=== PATIENT | male | born 1945 | race Caucasian/White ===

== ENCOUNTER 2018-05-03 09:58 | Inpatient (IN) ==
[2018-05-03] MEDS ORDERED: methylPREDNISolone SOD SUC 125 MG/2 ML VIAL IV STA (10:32)
[2018-05-03] MEDS ORDERED: FUROSEMIDE 100 MG/10 ML VIAL IV STA (10:32)
[2018-05-03 10:58] LABS: ABG Base Excess 4.2 MMOL/L (-2.5-2.5); ABG HCO3 28.1 MMOL/L (20-26); ABG Oxygen Saturation 91.8 % (95-100); ABG PCO2 42.2 MM HG (35-48); ABG PO2 58.2 MM HG (80-95); ABG TCO2 26.5 MMOL/L (23-27); Allen Test Positive
[2018-05-03] MEDS ORDERED: ALBUTEROL 2.5 MG/3 ML NEB RESP TX SCH (11:00)
[2018-05-03 11:07] LABS: Basophils % 0.3 % (0.0-0.8); Eosinophils % 0.2 % (0.00-10.9); Hematocrit 29.4 VOL% (42.0-52.0); Immature Granulocytes % 1.7 %; Lymphocytes # 1.7 10*3/uL (1.4-4.0); Lymphocytes % 14.2 % (21.2-54.2); Mean Corpuscular HGB Conc 32.3 GM/DL (32-36); Mean Corpuscular Hemoglobin 26 PG (27-34); Mean Platelet Volume 9.5 FL (9.6-12.0); Monocytes # 1.7 10*3/uL (0.11-0.8); Monocytes % 14.9 % (1.7-12.7); NRBC # 0.03 10*3/uL; Neutrophils % 68.7 % (38.7-73.9); Red Blood Count 3.63 MC/CUMM (3.8-5.5); Red Cell Distribution Width 16.4 % (9.3-17.3); White Blood Count 11.7 T/CUMM (4-12)
[2018-05-03 11:08] LABS: Hemoglobin 9.5 GM/DL (14.0-18.0); Platelet Count 114 T/CUMM (130-400)
[2018-05-03 11:36] LABS: Acetaminophen < 2.0 UG/ML (10-30); Salicylate < 2.8 MG/DL (2.8-20)
[2018-05-03 11:39] LABS: Albumin 2.9 G/DL (3.4-5.0); Bilirubin,Total 0.4 MG/DL (0.2-1.0); Calcium 7.5 MG/DL (8.5-10.1); Osmolality,Calculated 280.4 MOS/KG (273-304); Potassium 3.5 MMOL/L (3.5-5.1); Total Protein 6.4 G/DL (6.4-8.3)
[2018-05-03 11:59] LABS: Apearance,Urine CLEAR (Clear); Bilirubin,Urine Negative (Negative); Blood, Urine Negative (Negative); Glucose,Urine (UA) Negative (Negative); Ketones,Urine 5 mg/dL (Negative); Mucus,Urine Occasional /LPF (Occasional); Nitrite,Urine Negative (Negative); Protein,Urine Negative; RBC,Urine <1 /HPF (0-4); Urine Color Yellow (Yellow); Urine Specific Gravity 1.006 (1.001-1.035); Urine Urobilinogen < 2.0 EU/DL (0.2-1.0); WBC,Urine <1 /HPF (0-6)
[2018-05-03 12:09] LABS: Barbiturates Screen,Urine Negative (Negative); Benzodiazepines Screen,Urine Negative (Negative); Cannabinoid Screen,Urine Negative (Negative); Opiate Screen,Urine Negative (Negative); Phencyclidine Screen,Urine Negative (Negative)
[2018-05-03] MEDS ORDERED: DEXTROSE 50% 25 GM/50 ML VIAL IV PRN (15:34)
[2018-05-03] MEDS ORDERED: LACTULOSE 20 GM/30 ML UDCUP PO PRN (15:34)
[2018-05-03] MEDS ORDERED: ONDANSETRON 4 MG/2 ML VIAL IV PRN (15:34)
[2018-05-03] MEDS ORDERED: ACETAMINOPHEN 325 MG TABLET PO PRN (15:34)
[2018-05-03] MEDS ORDERED: MORPHINE 4 MG/1 ML VIAL IV PRN (15:34)
[2018-05-03] MEDS ORDERED: methylPREDNISolone SOD SUC 40 MG/1 ML VIAL IV SCH (15:34)
[2018-05-03] MEDS ORDERED: LORazepam 2 MG/1 ML VIAL IV PRN (15:34)
[2018-05-03] MEDS ORDERED: SODIUM CHLORIDE 0.9% 1,000 ML IV SCH (15:34)
[2018-05-03] MEDS ORDERED: GLUCAGON 1 MG VIAL IM PRN (15:34)
[2018-05-03] MEDS ORDERED: ALBUTEROL/IPRATROPIUM 3 ML NEB RESP TX PRN (15:34)
[2018-05-03] MEDS ORDERED: FUROSEMIDE 20 MG/2 ML VIAL IV SCH (16:00)
[2018-05-03] MEDS: ENOXAPARIN 40 MG/0.4 ML SYRINGE SUBCUT SCH (17:05)
[2018-05-03] MEDS: INSULIN REGULAR 100 UNIT/ML SUBCUT SCH ×2 (17:26→20:32)
[2018-05-03] MEDS: cefTRIAXone 1,000 MG in SYRINGE 1 EACH IV SCH (18:25)
[2018-05-03] MEDS: methylPREDNISolone SOD SUC 40 MG/1 ML VIAL IV SCH (18:25)
[2018-05-03] MEDS: DOCUSATE SODIUM 100 MG CAPSULE PO SCH (20:32)
[2018-05-03] MEDS ORDERED: BIOFLAVONOID PO SCH (21:00)
[2018-05-03] MEDS ORDERED: BERBERINE PO SCH (21:00)
[2018-05-03] MEDS ORDERED: ASCORBATE CALCIUM PO SCH (21:00)
[2018-05-03] MEDS ORDERED: cloNIDine 0.1 MG TABLET PO PRN (21:22)
[2018-05-03] MEDS: METOPROLOL TARTRATE 25 MG TABLET PO SCH (21:30)
[2018-05-04] MEDS: methylPREDNISolone SOD SUC 40 MG/1 ML VIAL IV SCH ×3 (03:13→18:33)
[2018-05-04 04:57] LABS: Basophils % 0.1 % (0.0-0.8); Hematocrit 29.2 VOL% (42.0-52.0); Hemoglobin 9.5 GM/DL (14.0-18.0); Immature Granulocytes % 1.4 %; Immature Granulocytes Absolute 0.15 #; Lymphocytes # 0.5 10*3/uL (1.4-4.0); Lymphocytes % 4.6 % (21.2-54.2); Mean Corpuscular HGB Conc 32.5 GM/DL (32-36); Mean Corpuscular Hemoglobin 26 PG (27-34); Monocytes # 0.9 10*3/uL (0.11-0.8); Monocytes % 8.2 % (1.7-12.7); NRBC # 0.03 10*3/uL; Neutrophils # 9.1 10*3/uL (1.4-7.4); Neutrophils % 85.7 % (38.7-73.9); Platelet Count 104 T/CUMM (130-400); Red Blood Count 3.65 MC/CUMM (3.8-5.5); Red Cell Distribution Width 16.4 % (9.3-17.3); White Blood Count 10.7 T/CUMM (4-12)
[2018-05-04 05:21] LABS: Band Neutrophils 2 % (0-10); Hypochromasia 1+; Lymphocytes 7 % (20-55); Platelet Estimate Decreased; Segmented Neutrophils 87 % (50-85); Total Cells Counted 100
[2018-05-04 05:24] LABS: Calcium 8.2 MG/DL (8.5-10.1); Osmolality,Calculated 276.8 MOS/KG (273-304); Potassium 3.9 MMOL/L (3.5-5.1)
[2018-05-04 05:29] LABS: Bilirubin,Total 0.7 MG/DL (0.2-1.0); Calcium 7.9 MG/DL (8.5-10.1); Osmolality,Calculated 278.7 MOS/KG (273-304); Potassium 3.9 MMOL/L (3.5-5.1); Risk Ratio 1.34; Total Protein 6.5 G/DL (6.4-8.3); VLDL CHOLESTEROL 11.8 MG/DL
[2018-05-04 05:35] LABS: Folate 13.5 NG/ML (5.4-24.0)
[2018-05-04] MEDS ORDERED: hydrALAZINE 20 MG/1 ML VIAL IV PRN (06:46)
[2018-05-04] MEDS: FUROSEMIDE 20 MG/2 ML VIAL IV SCH ×2 (07:21→16:51)
[2018-05-04] MEDS: INSULIN REGULAR 100 UNIT/ML SUBCUT SCH ×4 (08:33→20:16)
[2018-05-04] MEDS: MULTIVITAMIN (BEROCCA) TABLET PO SCH (08:33)
[2018-05-04] MEDS: SERTRALINE 50 MG TABLET PO SCH (08:34)
[2018-05-04] MEDS: PANTOPRAZOLE 40 MG VIAL IV SCH (08:34)
[2018-05-04] MEDS: METOPROLOL TARTRATE 25 MG TABLET PO SCH ×2 (08:34→20:16)
[2018-05-04] MEDS: DOCUSATE SODIUM 100 MG CAPSULE PO SCH ×2 (08:34→20:17)
[2018-05-04] MEDS: LOSARTAN 50 MG TABLET PO SCH (08:34)
[2018-05-04] MEDS ORDERED: AST PO SCH (09:00)
[2018-05-04] MEDS ORDERED: MILK THISTLE SEED EXTRACT 200 MG PO SCH (09:00)
[2018-05-04] MEDS ORDERED: KRILL PO SCH (09:00)
[2018-05-04] MEDS ORDERED: EPA PO SCH (09:00)
[2018-05-04] MEDS ORDERED: [UNRECOGNIZED DRUG - OTHER] PO SCH (09:00)
[2018-05-04] MEDS ORDERED: [UNRECOGNIZED DRUG - OTHER] PO SCH (09:00)
[2018-05-04] MEDS ORDERED: CHOLECALCIFEROL PO SCH (09:00)
[2018-05-04] MEDS ORDERED: VIT K2 PO SCH (09:00)
[2018-05-04] MEDS ORDERED: DHA PO SCH (09:00)
[2018-05-04] MEDS ORDERED: LOSARTAN 50 MG TABLET PO SCH (09:00)
[2018-05-04] MEDS ORDERED: PHOSPHO PO SCH (09:00)
[2018-05-04] MEDS: ENOXAPARIN 40 MG/0.4 ML SYRINGE SUBCUT SCH (15:50)
[2018-05-04] MEDS: cefTRIAXone 1,000 MG in SYRINGE 1 EACH IV SCH (17:07)
[2018-05-05] MEDS: methylPREDNISolone SOD SUC 40 MG/1 ML VIAL IV SCH ×2 (02:46→12:09)
[2018-05-05 06:18] VITALS: BP 163/83
[2018-05-05] MEDS: DOCUSATE SODIUM 100 MG CAPSULE PO SCH (08:35)
[2018-05-05] MEDS: SERTRALINE 50 MG TABLET PO SCH (08:35)
[2018-05-05] MEDS: MULTIVITAMIN (BEROCCA) TABLET PO SCH (08:35)
[2018-05-05] MEDS: FUROSEMIDE 20 MG/2 ML VIAL IV SCH (08:36)
[2018-05-05] MEDS: INSULIN REGULAR 100 UNIT/ML SUBCUT SCH ×2 (08:36→12:09)
[2018-05-05] MEDS: LOSARTAN 50 MG TABLET PO SCH (08:36)
[2018-05-05] MEDS: PANTOPRAZOLE 40 MG VIAL IV SCH (08:37)
[2018-05-05] MEDS: METOPROLOL TARTRATE 25 MG TABLET PO SCH (08:37)
[2018-05-05] MEDS ORDERED: ZINC OXIDE PASTE 113 GM TUBE TOP SCH (13:30)
== END 2018-05-05 12:45 | disposition home or self-care (01) | DRG 880 ==
LOC: EDUNIT# → EDBD → N.ED 09:58 → N.EDINP 14:03 → N.ICU 15:03
PROVIDERS: ADMIT Family Medicine; ATTEND Family Medicine

== ENCOUNTER 2018-07-02 12:01 | Inpatient (IN) ==
[2018-07-02] MEDS ORDERED: ALBUTEROL/IPRATROPIUM 3 ML NEB RESP TX STA (12:41)
[2018-07-02] MEDS ORDERED: methylPREDNISolone SOD SUC 125 MG/2 ML VIAL IV STA (12:41)
[2018-07-02 13:12] LABS: Basophils # 0.1 10*3/uL (0.0-0.2); Basophils % 0.6 % (0.0-0.8); Eosinophils % 0.1 % (0.00-10.9); Hematocrit 30.3 VOL% (42.0-52.0); Hemoglobin 8.4 GM/DL (14.0-18.0); Immature Granulocytes % 1.4 %; Immature Granulocytes Absolute 0.11 #; Lymphocytes # 1.3 10*3/uL (1.4-4.0); Lymphocytes % 16.3 % (21.2-54.2); Mean Corpuscular HGB Conc 27.7 GM/DL (32-36); Mean Corpuscular Hemoglobin 20 PG (27-34); Mean Corpuscular Volume 72.7 FL (87-102); Mean Platelet Volume 9.3 FL (9.6-12.0); Monocytes # 1.3 10*3/uL (0.11-0.8); Monocytes % 16.6 % (1.7-12.7); Neutrophils # 5.1 10*3/uL (1.4-7.4); Platelet Count 139 T/CUMM (130-400); Red Blood Count 4.17 MC/CUMM (3.8-5.5); Red Cell Distribution Width 20.6 % (9.3-17.3); White Blood Count 7.8 T/CUMM (4-12)
[2018-07-02 13:44] LABS: Albumin 2.8 G/DL (3.4-5.0); Bilirubin,Total 0.5 MG/DL (0.2-1.0); Osmolality,Calculated 274.7 MOS/KG (273-304); Total Protein 6.2 G/DL (6.4-8.3)
[2018-07-02] MEDS ORDERED: LEVOFLOXACIN INJ 500 MG in PREMIX 1 EACH IV STA (14:17)
[2018-07-02 15:01] LABS: Band Neutrophils 1 % (0-10); Lymphocytes 17 % (20-55); Segmented Neutrophils 78 % (50-85); Total Cells Counted 100
[2018-07-02 15:02] LABS: Anisocytosis 1+; Microcytosis 1+
[2018-07-02 15:04] LABS: Hypochromasia 1+; Ovalocytes Few; Stomatocytes Slight; Target Cells Slight
[2018-07-02 15:11] LABS: Platelet Estimate Adequate
[2018-07-02 15:14] LABS: Polychromasia Slight
[2018-07-02] MEDS: ALBUTEROL/IPRATROPIUM 3 ML NEB RESP TX SCH ×3 (16:47→23:13)
[2018-07-03] MEDS: ALBUTEROL/IPRATROPIUM 3 ML NEB RESP TX SCH ×6 (02:58→23:17)
[2018-07-03 05:45] LABS: Calcium 8.5 MG/DL (8.5-10.1); Osmolality,Calculated 271.2 MOS/KG (273-304); Potassium 3.8 MMOL/L (3.5-5.1)
[2018-07-03] MEDS ORDERED: DEXTROSE 50% 25 GM/50 ML VIAL IV PRN (07:45)
[2018-07-03] MEDS ORDERED: GLUCAGON 1 MG VIAL IM PRN (07:45)
[2018-07-03] MEDS: hydroCHLOROthiazide 12.5 MG CAPSULE PO SCH (08:19)
[2018-07-03] MEDS: BICALUTAMIDE 50 MG TABLET PO SCH (08:19)
[2018-07-03] MEDS: LEVOFLOXACIN INJ 500 MG in PREMIX 1 EACH IV SCH (08:20)
[2018-07-03] MEDS ORDERED: methylPREDNISolone SOD SUC 40 MG/1 ML VIAL IV SCH (09:00)
[2018-07-03] MEDS: LOSARTAN 50 MG TABLET PO SCH (09:21)
[2018-07-03 09:48] LABS: Basophils % 0.1 % (0.0-0.8); Hematocrit 31.1 VOL% (42.0-52.0); Hemoglobin 8.8 GM/DL (14.0-18.0); Immature Granulocytes % 0.5 %; Immature Granulocytes Absolute 0.04 #; Lymphocytes # 0.7 10*3/uL (1.4-4.0); Lymphocytes % 8.9 % (21.2-54.2); Mean Corpuscular HGB Conc 28.3 GM/DL (32-36); Mean Corpuscular Hemoglobin 20 PG (27-34); Mean Corpuscular Volume 69.4 FL (87-102); Mean Platelet Volume 9.8 FL (9.6-12.0); Monocytes # 1.7 10*3/uL (0.11-0.8); NRBC # 0.05 10*3/uL; Neutrophils # 5.2 10*3/uL (1.4-7.4); Neutrophils % 68.5 % (38.7-73.9); Platelet Count 160 T/CUMM (130-400); Red Blood Count 4.48 MC/CUMM (3.8-5.5); Red Cell Distribution Width 21.1 % (9.3-17.3); White Blood Count 7.6 T/CUMM (4-12)
[2018-07-03 09:52] LABS: Band Neutrophils 5 % (0-10); Lymphocytes 14 % (20-55); Platelet Estimate Normal; Segmented Neutrophils 65 % (50-85); Total Cells Counted 100
[2018-07-03 09:53] LABS: Anisocytosis 1+; Hypochromasia Slight; Polychromasia Slight
[2018-07-03] MEDS: FLUTICASONE/SALMETEROL 250-50 DISKUS 14 DOSE INH SCH ×2 (10:34→21:07)
[2018-07-03] MEDS ORDERED: hydrALAZINE 20 MG/1 ML VIAL IV PRN (10:55)
[2018-07-03] MEDS: INSULIN LISPRO 100 UNIT/ML SUBCUT SCH ×3 (11:49→21:07)
[2018-07-03 12:43] LABS: Troponin I 0.022 NG/ML (0.00-0.045)
[2018-07-03 14:26] LABS: % Iron Saturation 3.1 % (18-50); Ferritin 15.4 ng/ml (26-388)
[2018-07-03] MEDS ORDERED: FUROSEMIDE 40 MG/4 ML VIAL IV ONE (17:40)
[2018-07-03] MEDS: methylPREDNISolone SOD SUC 40 MG/1 ML VIAL IV SCH (18:16)
[2018-07-04] MEDS: methylPREDNISolone SOD SUC 40 MG/1 ML VIAL IV SCH ×2 (02:06→08:51)
[2018-07-04] MEDS: ALBUTEROL/IPRATROPIUM 3 ML NEB RESP TX SCH ×2 (02:37→06:55)
[2018-07-04 05:55] LABS: Calcium 8.8 MG/DL (8.5-10.1); Osmolality,Calculated 272.1 MOS/KG (273-304); Potassium 3.5 MMOL/L (3.5-5.1)
[2018-07-04 06:09] LABS: Basophils % 0.1 % (0.0-0.8); Hematocrit 31.5 VOL% (42.0-52.0); Immature Granulocytes % 0.7 %; Immature Granulocytes Absolute 0.06 #; Lymphocytes # 0.5 10*3/uL (1.4-4.0); Lymphocytes % 5.7 % (21.2-54.2); Mean Corpuscular HGB Conc 28.6 GM/DL (32-36); Mean Corpuscular Hemoglobin 20 PG (27-34); Mean Corpuscular Volume 69.7 FL (87-102); Mean Platelet Volume 10.4 FL (9.6-12.0); Monocytes # 0.8 10*3/uL (0.11-0.8); NRBC # 0.03 10*3/uL; Neutrophils # 7.6 10*3/uL (1.4-7.4); Neutrophils % 84.5 % (38.7-73.9); Platelet Count 163 T/CUMM (130-400); Red Blood Count 4.52 MC/CUMM (3.8-5.5); Red Cell Distribution Width 21.2 % (9.3-17.3)
[2018-07-04 08:08] VITALS: BP 150/80
[2018-07-04] MEDS: INSULIN LISPRO 100 UNIT/ML SUBCUT SCH (08:50)
[2018-07-04] MEDS: LEVOFLOXACIN INJ 500 MG in PREMIX 1 EACH IV SCH (08:50)
[2018-07-04] MEDS: hydroCHLOROthiazide 12.5 MG CAPSULE PO SCH (08:53)
[2018-07-04] MEDS: LOSARTAN 50 MG TABLET PO SCH (08:53)
[2018-07-04] MEDS: BICALUTAMIDE 50 MG TABLET PO SCH (08:54)
[2018-07-04] MEDS: FLUTICASONE/SALMETEROL 250-50 DISKUS 14 DOSE INH SCH (08:54)
[2018-07-04] MEDS ORDERED: predniSONE 20 MG TABLET PO SCH (10:00)
== END 2018-07-04 09:47 | disposition home or self-care (01) | DRG 190 ==
LOC: N.ED 12:01 → N.EDINP 14:16 → N.2E 16:35
PROVIDERS: ADMIT Family Medicine; ATTEND Family Medicine

== ENCOUNTER 2018-09-09 14:02 | Inpatient (IN) ==
[2018-09-09] MEDS ORDERED: SODIUM CHLORIDE 0.9% 1,000 ML IV STA (14:28)
[2018-09-09] MEDS ORDERED: ACETAMINOPHEN 500 MG TABLET PO STA (14:31)
[2018-09-09 14:42] LABS: ABG Base Excess 5.3 MMOL/L (-2.5-2.5); ABG HCO3 29.2 MMOL/L (20-26); ABG Oxygen Saturation 98.5 % (95-100); ABG PCO2 45.5 MM HG (35-48); ABG PH 7.431 (7.35-7.45); ABG TCO2 28.1 MMOL/L (23-27)
[2018-09-09] MEDS ORDERED: methylPREDNISolone SOD SUC 125 MG/2 ML VIAL IV STA (14:55)
[2018-09-09] MEDS ORDERED: ALBUTEROL 2.5 MG/3 ML NEB RESP TX STA (14:55)
[2018-09-09 15:19] LABS: INR 1.1; PT Patient Result 11.6 SECS
[2018-09-09 15:28] LABS: Alanine Aminotransferase 33 U/L (16-61); Albumin 2.3 G/DL (3.4-5.0); Alkaline Phosphatase 173 U/L (45-117); Aspartate Amino Transferase 65 U/L (0-37); Blood Urea Nitrogen 39 MG/DL (7-18); Calcium 8.6 MG/DL (8.5-10.1); Glucose 83 MG/DL (74-106); Osmolality,Calculated 275.2 MOS/KG (273-304); Potassium 3.4 MMOL/L (3.5-5.1); Sodium 134 MMOL/L (136-145); Total Protein 7.2 G/DL (6.4-8.3)
[2018-09-09 15:31] LABS: Lactic Acid 9.9 MMOL/L (0.4-2.0)
[2018-09-09 15:34] LABS: Basophils % 0.2 % (0.0-0.8); Hematocrit 29.6 VOL% (42.0-52.0); Hemoglobin 8.4 GM/DL (14.0-18.0); Immature Granulocytes Absolute 0.22 #; Lymphocytes # 0.2 10*3/uL (1.4-4.0); Lymphocytes % 0.8 % (21.2-54.2); Mean Corpuscular HGB Conc 28.4 GM/DL (32-36); Mean Corpuscular Hemoglobin 19 PG (27-34); Mean Corpuscular Volume 68.5 FL (87-102); Mean Platelet Volume 8.8 FL (9.6-12.0); Monocytes # 0.2 10*3/uL (0.11-0.8); NRBC # 0.03 10*3/uL; Neutrophils # 21.4 10*3/uL (1.4-7.4); Platelet Count 196 T/CUMM (130-400); Red Blood Count 4.32 MC/CUMM (3.8-5.5); Red Cell Distribution Width 21.6 % (9.3-17.3); White Blood Count 22.1 T/CUMM (4-12)
[2018-09-09] MEDS ORDERED: PROMETHAZINE 25 MG/1 ML VIAL IM PRN ×2 (15:59→16:29)
[2018-09-09] MEDS ORDERED: ONDANSETRON 4 MG/2 ML VIAL IV PRN ×2 (15:59→16:29)
[2018-09-09] MEDS ORDERED: ACETAMINOPHEN 325 MG TABLET PO PRN (15:59)
[2018-09-09] MEDS ORDERED: ENOXAPARIN 40 MG/0.4 ML SYRINGE SUBCUT SCH (16:00)
[2018-09-09 16:07] LABS: Apearance,Urine CLOUDY (Clear); Bacteria,Urine Occasional /HPF (Few); Bilirubin,Urine Negative (Negative); Blood, Urine Negative (Negative); Glucose,Urine (UA) Negative (Negative); Hyaline Casts,Urine 17 /LPF (0-3); Ketones,Urine Negative (Negative); Mucus,Urine Occasional /LPF (Occasional); Nitrite,Urine Negative (Negative); Protein,Urine Negative; RBC,Urine 6 /HPF (0-4); Urine Color Yellow (Yellow); Urine Specific Gravity 1.006 (1.001-1.035); Urine Urobilinogen < 2.0 EU/DL (0.2-1.0); WBC,Urine 166 /HPF (0-6)
[2018-09-09] MEDS ORDERED: ALBUTEROL 2.5 MG/3 ML NEB RESP TX PRN (16:29)
[2018-09-09] MEDS ORDERED: SODIUM CHLORIDE 0.9% 1,500 ML IV ONE (16:34)
[2018-09-09] MEDS ORDERED: POTASSIUM CHLORIDE 20 MEQ TABLET PO PRN (16:39)
[2018-09-09] MEDS ORDERED: POTASSIUM CHLORIDE RIDER 10 MEQ in PREMIX 1 EACH IV PRN (16:39)
[2018-09-09] MEDS ORDERED: DEXTROSE 50% 25 GM/50 ML VIAL IV PRN (16:40)
[2018-09-09] MEDS ORDERED: GLUCAGON 1 MG VIAL IM PRN (16:40)
[2018-09-09] MEDS: cefTRIAXone 1,000 MG in SYRINGE 1 EACH IV SCH (17:00)
[2018-09-09] MEDS: AZITHROMYCIN INJ 500 MG in SODIUM CHLORIDE 0.9% 250 ML IV SCH (17:03)
[2018-09-09] MEDS: SODIUM CHLORIDE 0.9% 1,000 ML IV SCH (18:23)
[2018-09-09] MEDS: INSULIN LISPRO 100 UNIT/ML SUBCUT SCH (18:56)
[2018-09-09] MEDS ORDERED: NOREPINEPHRINE 8 MG in SODIUM CHLORIDE 0.9% 242 ML IV PRN (19:03)
[2018-09-09] MEDS: ALBUTEROL/IPRATROPIUM 3 ML NEB RESP TX SCH (19:20)
[2018-09-09] MEDS: DORNASE ALFA 2.5 MG/2.5 ML VIAL RESP TX SCH (19:28)
[2018-09-09] MEDS: PANTOPRAZOLE 40 MG VIAL IV SCH (19:32)
[2018-09-09] MEDS: ENOXAPARIN 40 MG/0.4 ML SYRINGE SUBCUT SCH (19:32)
[2018-09-09] MEDS ORDERED: MAGNESIUM SULF RIDER 2 GM in PREMIX 1 EACH IV ONE (19:43)
[2018-09-09 20:40] LABS: Band Neutrophils 10 % (0-10); Nucleated Red Blood Cells 2 (0-5); Segmented Neutrophils 87 % (50-85); Total Cells Counted 100
[2018-09-09 20:41] LABS: Anisocytosis 2+; Hypochromasia Slight; Polychromasia 2+; Stomatocytes Few
[2018-09-09 20:43] LABS: Platelet Estimate Normal
[2018-09-10] MEDS: guaiFENesin/DM ER 600-30 MG TABLET PO SCH ×3 (00:09→20:54)
[2018-09-10] MEDS: INSULIN LISPRO 100 UNIT/ML SUBCUT SCH ×5 (00:27→20:54)
[2018-09-10] MEDS: ALBUTEROL/IPRATROPIUM 3 ML NEB RESP TX SCH ×4 (00:39→19:53)
[2018-09-10 03:36] LABS: ABG Base Excess 8.7 MMOL/L (-2.5-2.5); ABG HCO3 32.4 MMOL/L (20-26); ABG Oxygen Saturation 86.7 % (95-100); ABG PCO2 62.3 MM HG (35-48); ABG PH 7.365 (7.35-7.45); ABG PO2 59.9 MM HG (80-95); ABG TCO2 33.6 MMOL/L (23-27); Allen Test Positive; Pt O2 Delivery Device Venturi Mask
[2018-09-10 04:50] LABS: Basophils # 0.1 10*3/uL (0.0-0.2); Basophils % 0.2 % (0.0-0.8); Hematocrit 25.9 VOL% (42.0-52.0); Hemoglobin 7.5 GM/DL (14.0-18.0); Immature Granulocytes Absolute 4.21 #; Lymphocytes # 0.7 10*3/uL (1.4-4.0); Lymphocytes % 1.1 % (21.2-54.2); Mean Corpuscular Hemoglobin 20 PG (27-34); Mean Corpuscular Volume 68.9 FL (87-102); Mean Platelet Volume 9.6 FL (9.6-12.0); Monocytes # 1.6 10*3/uL (0.11-0.8); Monocytes % 2.6 % (1.7-12.7); Neutrophils % 89.1 % (38.7-73.9); Platelet Count 173 T/CUMM (130-400); Red Blood Count 3.76 MC/CUMM (3.8-5.5); Red Cell Distribution Width 21.8 % (9.3-17.3)
[2018-09-10 04:55] LABS: White Blood Count 60.5 T/CUMM (4-12)
[2018-09-10 05:00] LABS: INR 1.1; PT Patient Result 11.5 SECS
[2018-09-10] MEDS: cefTRIAXone 1,000 MG in SYRINGE 1 EACH IV SCH (05:10)
[2018-09-10 05:14] LABS: Lactic Acid 2.9 MMOL/L (0.4-2.0)
[2018-09-10 05:17] LABS: Alanine Aminotransferase 54 U/L (16-61); Albumin 2.1 G/DL (3.4-5.0); Alkaline Phosphatase 87 U/L (45-117); Aspartate Amino Transferase 119 U/L (0-37); Blood Urea Nitrogen 42 MG/DL (7-18); Calcium 7.9 MG/DL (8.5-10.1); Cholesterol 79 MG/DL (50-200); Glucose 185 MG/DL (74-106); HDL Cholesterol 25 MG/DL (40-60); Osmolality,Calculated 281.4 MOS/KG (273-304); Potassium 4.1 MMOL/L (3.5-5.1); Risk Ratio 3.16; Sodium 133 MMOL/L (136-145); Total Protein 6.4 G/DL (6.4-8.3); Triglycerides 169 MG/DL (2-150); VLDL CHOLESTEROL 33.8 MG/DL
[2018-09-10] MEDS ORDERED: VANCOMYCIN INJ 1,000 MG in SODIUM CHLORIDE 0.9% 250 ML IV SCH (05:30)
[2018-09-10 05:38] LABS: Band Neutrophils 4 % (0-10); Lymphocytes 2 % (20-55); Platelet Estimate Adequate; Segmented Neutrophils 92 % (50-85); Total Cells Counted 100
[2018-09-10 05:39] LABS: Hypochromasia 1+; Ovalocytes Slight
[2018-09-10] MEDS ORDERED: FUROSEMIDE 40 MG/4 ML VIAL IV ONE ×2 (06:26→13:34)
[2018-09-10] MEDS: DORNASE ALFA 2.5 MG/2.5 ML VIAL RESP TX SCH ×2 (07:24→19:53)
[2018-09-10] MEDS ORDERED: PANTOPRAZOLE 40 MG TABLET PO SCH (09:00)
[2018-09-10] MEDS: PIPERACILLIN/TAZOBACTAM 3,375 MG in SODIUM CHLORIDE 0.9% 100 ML IV SCH ×3 (09:28→23:34)
[2018-09-10 09:46] LABS: Allen Test Positive
[2018-09-10 09:47] LABS: ABG Base Excess 9.7 MMOL/L (-2.5-2.5); ABG HCO3 34.4 MMOL/L (20-26); ABG Oxygen Saturation 85.4 % (95-100); ABG PCO2 48.6 MM HG (35-48); ABG PH 7.468 (7.35-7.45); ABG PO2 54.2 MM HG (80-95); ABG TCO2 35.9 MMOL/L (23-27)
[2018-09-10] MEDS ORDERED: VANCOMYCIN INJ 1,500 MG in SODIUM CHLORIDE 0.9% 500 ML IV ONE (12:00)
[2018-09-10] MEDS: SKIN HEALING OINT (AQUAPHOR) 50 GM TUBE TOP SCH (13:08)
[2018-09-10] MEDS: SODIUM CHLORIDE 0.9% 1,000 ML IV SCH (13:10)
[2018-09-10] MEDS ORDERED: SODIUM CHLORIDE 0.9% 1,000 ML IV PRN (13:35)
[2018-09-10] MEDS: methylPREDNISolone SOD SUC 40 MG/1 ML VIAL IV SCH ×2 (15:44→22:45)
[2018-09-10] MEDS: POLYETHYLENE GLYCOL POWDER 17 GM PACK PO SCH (15:44)
[2018-09-10] MEDS: PANTOPRAZOLE 40 MG VIAL IV SCH (17:18)
[2018-09-10] MEDS: ENOXAPARIN 40 MG/0.4 ML SYRINGE SUBCUT SCH (17:19)
[2018-09-10] MEDS: AZITHROMYCIN INJ 500 MG in SODIUM CHLORIDE 0.9% 250 ML IV SCH (18:45)
[2018-09-10] MEDS ORDERED: DICLOFENAC 1% GEL 100 GM TUBE TOP PRN (19:25)
[2018-09-10] MEDS: FERROUS SULFATE 325 MG TABLET PO SCH (20:54)
[2018-09-10] MEDS: FLUTICASONE/SALMETEROL 250-50 DISKUS 14 DOSE INH SCH (20:54)
[2018-09-11] MEDS: ALBUTEROL/IPRATROPIUM 3 ML NEB RESP TX SCH ×4 (01:09→20:12)
[2018-09-11 01:28] LABS: Hematocrit 29.4 VOL% (42.0-52.0); Hemoglobin 8.8 GM/DL (14.0-18.0)
[2018-09-11 04:29] LABS: Basophils # 0.1 10*3/uL (0.0-0.2); Basophils % 0.2 % (0.0-0.8); Hematocrit 29.9 VOL% (42.0-52.0); Hemoglobin 8.8 GM/DL (14.0-18.0); Immature Granulocytes % 3.6 %; Immature Granulocytes Absolute 1.61 #; Lymphocytes # 0.6 10*3/uL (1.4-4.0); Lymphocytes % 1.2 % (21.2-54.2); Mean Corpuscular HGB Conc 29.4 GM/DL (32-36); Mean Corpuscular Hemoglobin 20 PG (27-34); Mean Corpuscular Volume 69.2 FL (87-102); Mean Platelet Volume 9.8 FL (9.6-12.0); Monocytes # 1.1 10*3/uL (0.11-0.8); Monocytes % 2.5 % (1.7-12.7); NRBC # 0.04 10*3/uL; Neutrophils % 92.5 % (38.7-73.9); Platelet Count 148 T/CUMM (130-400); Red Blood Count 4.32 MC/CUMM (3.8-5.5); Red Cell Distribution Width 22.9 % (9.3-17.3)
[2018-09-11 04:47] LABS: White Blood Count 44.3 T/CUMM (4-12)
[2018-09-11 04:52] LABS: Calcium 8.1 MG/DL (8.5-10.1); Osmolality,Calculated 285.1 MOS/KG (273-304); Potassium 3.6 MMOL/L (3.5-5.1)
[2018-09-11 05:05] LABS: Band Neutrophils 5 % (0-10); Lymphocytes 2 % (20-55); Segmented Neutrophils 92 % (50-85); Total Cells Counted 100
[2018-09-11 05:06] LABS: Hypochromasia 1+; Microcytosis 1+; Platelet Estimate Adequate; Target Cells Few
[2018-09-11] MEDS: SODIUM CHLORIDE 0.9% 1,000 ML IV SCH ×2 (05:30→08:31)
[2018-09-11] MEDS: methylPREDNISolone SOD SUC 40 MG/1 ML VIAL IV SCH ×3 (06:12→23:35)
[2018-09-11] MEDS: DORNASE ALFA 2.5 MG/2.5 ML VIAL RESP TX SCH ×2 (07:03→20:12)
[2018-09-11] MEDS ORDERED: FUROSEMIDE 40 MG TABLET PO SCH (09:00)
[2018-09-11] MEDS ORDERED: predniSONE 20 MG TABLET PO SCH (09:00)
[2018-09-11] MEDS ORDERED: FUROSEMIDE 40 MG/4 ML VIAL IV ONE (09:22)
[2018-09-11] MEDS: BICALUTAMIDE 50 MG TABLET PO SCH (09:27)
[2018-09-11] MEDS: guaiFENesin/DM ER 600-30 MG TABLET PO SCH ×2 (09:27→20:06)
[2018-09-11] MEDS: SKIN HEALING OINT (AQUAPHOR) 50 GM TUBE TOP SCH (09:27)
[2018-09-11] MEDS: FERROUS SULFATE 325 MG TABLET PO SCH ×2 (09:27→20:06)
[2018-09-11] MEDS: INSULIN LISPRO 100 UNIT/ML SUBCUT SCH ×4 (09:29→20:07)
[2018-09-11] MEDS: POLYETHYLENE GLYCOL POWDER 17 GM PACK PO SCH (09:32)
[2018-09-11] MEDS: PIPERACILLIN/TAZOBACTAM 3,375 MG in SODIUM CHLORIDE 0.9% 100 ML IV SCH ×3 (09:33→23:38)
[2018-09-11] MEDS: FLUTICASONE/SALMETEROL 250-50 DISKUS 14 DOSE INH SCH ×2 (11:08→20:07)
[2018-09-11] MEDS ORDERED: VANCOMYCIN INJ 2,250 MG in SODIUM CHLORIDE 0.9% 500 ML IV SCH (12:00)
[2018-09-11] MEDS: AZITHROMYCIN INJ 500 MG in SODIUM CHLORIDE 0.9% 250 ML IV SCH (17:34)
[2018-09-11] MEDS: ENOXAPARIN 40 MG/0.4 ML SYRINGE SUBCUT SCH (17:35)
[2018-09-11] MEDS: CLORAZEPATE 3.75 MG TABLET PO SCH ×2 (17:35→20:06)
[2018-09-12] MEDS: ALBUTEROL/IPRATROPIUM 3 ML NEB RESP TX SCH ×4 (02:15→19:35)
[2018-09-12 05:39] LABS: Basophils # 0.1 10*3/uL (0.0-0.2); Basophils % 0.2 % (0.0-0.8); Hematocrit 31.1 VOL% (42.0-52.0); Immature Granulocytes % 1.7 %; Immature Granulocytes Absolute 0.57 #; Lymphocytes # 0.7 10*3/uL (1.4-4.0); Lymphocytes % 1.9 % (21.2-54.2); Mean Corpuscular HGB Conc 28.9 GM/DL (32-36); Mean Corpuscular Hemoglobin 20 PG (27-34); Mean Corpuscular Volume 70.2 FL (87-102); Mean Platelet Volume 10.8 FL (9.6-12.0); Monocytes # 0.7 10*3/uL (0.11-0.8); NRBC # 0.02 10*3/uL; Neutrophils # 31.8 10*3/uL (1.4-7.4); Neutrophils % 94.2 % (38.7-73.9); Platelet Count 167 T/CUMM (130-400); Red Blood Count 4.43 MC/CUMM (3.8-5.5); Red Cell Distribution Width 23.3 % (9.3-17.3); White Blood Count 33.8 T/CUMM (4-12)
[2018-09-12 06:14] LABS: Albumin 1.9 G/DL (3.4-5.0); Bilirubin,Total 0.8 MG/DL (0.2-1.0); Calcium 8.7 MG/DL (8.5-10.1); Osmolality,Calculated 293.3 MOS/KG (273-304); Potassium 3.6 MMOL/L (3.5-5.1); Total Protein 6.4 G/DL (6.4-8.3)
[2018-09-12 06:55] LABS: Lymphocytes 2 % (20-55); Platelet Estimate Adequate; Segmented Neutrophils 96 % (50-85); Total Cells Counted 100
[2018-09-12 06:56] LABS: Burr Cells Slight; Hypochromasia 1+; Ovalocytes Slight
[2018-09-12 06:57] LABS: Microcytosis 1+
[2018-09-12] MEDS: methylPREDNISolone SOD SUC 40 MG/1 ML VIAL IV SCH ×3 (07:00→20:57)
[2018-09-12] MEDS: DORNASE ALFA 2.5 MG/2.5 ML VIAL RESP TX SCH ×2 (07:33→19:35)
[2018-09-12] MEDS: PIPERACILLIN/TAZOBACTAM 3,375 MG in SODIUM CHLORIDE 0.9% 100 ML IV SCH (08:15)
[2018-09-12] MEDS: INSULIN LISPRO 100 UNIT/ML SUBCUT SCH ×4 (09:54→21:08)
[2018-09-12] MEDS: CLORAZEPATE 3.75 MG TABLET PO SCH ×4 (09:57→20:57)
[2018-09-12] MEDS: guaiFENesin/DM ER 600-30 MG TABLET PO SCH ×2 (09:57→20:57)
[2018-09-12] MEDS: PANTOPRAZOLE 40 MG TABLET PO SCH (09:57)
[2018-09-12] MEDS: FERROUS SULFATE 325 MG TABLET PO SCH ×2 (09:57→20:57)
[2018-09-12] MEDS: POLYETHYLENE GLYCOL POWDER 17 GM PACK PO SCH (09:57)
[2018-09-12] MEDS: BICALUTAMIDE 50 MG TABLET PO SCH (10:02)
[2018-09-12] MEDS: FLUTICASONE/SALMETEROL 250-50 DISKUS 14 DOSE INH SCH ×2 (10:06→21:08)
[2018-09-12] MEDS: SKIN HEALING OINT (AQUAPHOR) 50 GM TUBE TOP SCH (10:06)
[2018-09-12] MEDS: MULTIVITAMIN (CENTRUM) TABLET PO SCH (12:26)
[2018-09-12] MEDS: FOLIC ACID 1 MG TABLET PO SCH (12:26)
[2018-09-12] MEDS: glipiZIDE 5 MG TABLET PO SCH (12:26)
[2018-09-12] MEDS: THIAMINE 100 MG TABLET PO SCH (12:30)
[2018-09-12] MEDS: NICOTINE 21 MG/24 HR PATCH TRANSDERM SCH (13:58)
[2018-09-12] MEDS: cefTRIAXone 2,000 MG in SYRINGE 1 EACH IV SCH (13:59)
[2018-09-12] MEDS: ENOXAPARIN 40 MG/0.4 ML SYRINGE SUBCUT SCH (16:49)
[2018-09-12] MEDS: AZITHROMYCIN INJ 500 MG in SODIUM CHLORIDE 0.9% 250 ML IV SCH (17:56)
[2018-09-13] MEDS: ALBUTEROL/IPRATROPIUM 3 ML NEB RESP TX SCH ×4 (01:31→20:15)
[2018-09-13 06:19] LABS: Calcium 8.6 MG/DL (8.5-10.1); Osmolality,Calculated 298.1 MOS/KG (273-304); Potassium 3.8 MMOL/L (3.5-5.1)
[2018-09-13 06:49] LABS: Basophils # 0.1 10*3/uL (0.0-0.2); Basophils % 0.3 % (0.0-0.8); Hemoglobin 9.2 GM/DL (14.0-18.0); Immature Granulocytes % 1.7 %; Immature Granulocytes Absolute 0.39 #; Lymphocytes # 0.7 10*3/uL (1.4-4.0); Lymphocytes % 3.2 % (21.2-54.2); Mean Corpuscular HGB Conc 28.8 GM/DL (32-36); Mean Corpuscular Hemoglobin 21 PG (27-34); Mean Corpuscular Volume 71.3 FL (87-102); Mean Platelet Volume 10.1 FL (9.6-12.0); Monocytes # 0.6 10*3/uL (0.11-0.8); Monocytes % 2.6 % (1.7-12.7); NRBC # 0.03 10*3/uL; Neutrophils # 20.7 10*3/uL (1.4-7.4); Neutrophils % 92.2 % (38.7-73.9); Platelet Count 143 T/CUMM (130-400); Red Blood Count 4.49 MC/CUMM (3.8-5.5); Red Cell Distribution Width 23.9 % (9.3-17.3); White Blood Count 22.5 T/CUMM (4-12)
[2018-09-13] MEDS: DORNASE ALFA 2.5 MG/2.5 ML VIAL RESP TX SCH ×2 (07:28→20:15)
[2018-09-13 07:41] LABS: Eosinophils 1 % (0-10); Lymphocytes 7 % (20-55); Segmented Neutrophils 89 % (50-85); Total Cells Counted 100
[2018-09-13 07:42] LABS: Hypochromasia 1+
[2018-09-13 07:43] LABS: Ovalocytes 1+; Target Cells 2+
[2018-09-13 07:45] LABS: Microcytosis 1+
[2018-09-13 07:47] LABS: Platelet Estimate Adequate
[2018-09-13] MEDS: INSULIN LISPRO 100 UNIT/ML SUBCUT SCH ×4 (07:55→21:34)
[2018-09-13] MEDS: FERROUS SULFATE 325 MG TABLET PO SCH ×2 (08:51→21:22)
[2018-09-13] MEDS: CLORAZEPATE 3.75 MG TABLET PO SCH ×4 (08:51→21:22)
[2018-09-13] MEDS: guaiFENesin/DM ER 600-30 MG TABLET PO SCH ×2 (08:51→21:22)
[2018-09-13] MEDS: MULTIVITAMIN (CENTRUM) TABLET PO SCH (08:51)
[2018-09-13] MEDS: methylPREDNISolone SOD SUC 40 MG/1 ML VIAL IV SCH ×2 (08:52→21:21)
[2018-09-13] MEDS: THIAMINE 100 MG TABLET PO SCH (08:52)
[2018-09-13] MEDS: glipiZIDE 5 MG TABLET PO SCH (08:52)
[2018-09-13] MEDS: FOLIC ACID 1 MG TABLET PO SCH (08:52)
[2018-09-13] MEDS: POLYETHYLENE GLYCOL POWDER 17 GM PACK PO SCH (08:56)
[2018-09-13] MEDS: FLUTICASONE/SALMETEROL 250-50 DISKUS 14 DOSE INH SCH ×2 (08:56→21:34)
[2018-09-13] MEDS: PANTOPRAZOLE 40 MG TABLET PO SCH (08:57)
[2018-09-13] MEDS: NICOTINE 21 MG/24 HR PATCH TRANSDERM SCH (08:57)
[2018-09-13] MEDS: SKIN HEALING OINT (AQUAPHOR) 50 GM TUBE TOP SCH (08:59)
[2018-09-13] MEDS: cefTRIAXone 2,000 MG in SYRINGE 1 EACH IV SCH (11:49)
[2018-09-13] MEDS: ENOXAPARIN 40 MG/0.4 ML SYRINGE SUBCUT SCH (17:50)
[2018-09-13] MEDS: AZITHROMYCIN INJ 500 MG in SODIUM CHLORIDE 0.9% 250 ML IV SCH (17:50)
[2018-09-14] MEDS: ALBUTEROL/IPRATROPIUM 3 ML NEB RESP TX SCH ×4 (00:08→19:14)
[2018-09-14 04:53] LABS: Calcium 8.9 MG/DL (8.5-10.1); Osmolality,Calculated 294.1 MOS/KG (273-304); Potassium 4.3 MMOL/L (3.5-5.1)
[2018-09-14 04:54] LABS: Basophils # 0.1 10*3/uL (0.0-0.2); Basophils % 0.5 % (0.0-0.8); Eosinophils % 0.1 % (0.00-10.9); Hematocrit 34.9 VOL% (42.0-52.0); Immature Granulocytes % 4.8 %; Immature Granulocytes Absolute 0.84 #; Lymphocytes # 0.8 10*3/uL (1.4-4.0); Lymphocytes % 4.4 % (21.2-54.2); Mean Corpuscular HGB Conc 27.8 GM/DL (32-36); Mean Corpuscular Hemoglobin 21 PG (27-34); Mean Corpuscular Volume 73.6 FL (87-102); Mean Platelet Volume 10.3 FL (9.6-12.0); Monocytes # 0.6 10*3/uL (0.11-0.8); Monocytes % 3.3 % (1.7-12.7); NRBC # 0.02 10*3/uL; Neutrophils # 15.1 10*3/uL (1.4-7.4); Neutrophils % 86.9 % (38.7-73.9); Platelet Count 150 T/CUMM (130-400); Red Blood Count 4.74 MC/CUMM (3.8-5.5); Red Cell Distribution Width 23.9 % (9.3-17.3); White Blood Count 17.3 T/CUMM (4-12)
[2018-09-14 04:59] LABS: Hemoglobin 9.7 GM/DL (14.0-18.0)
[2018-09-14 05:36] LABS: Hypochromasia 2+; Lymphocytes 3 % (20-55); Platelet Estimate Adequate; Segmented Neutrophils 93 % (50-85); Total Cells Counted 100
[2018-09-14] MEDS: DORNASE ALFA 2.5 MG/2.5 ML VIAL RESP TX SCH ×2 (07:18→19:14)
[2018-09-14] MEDS: methylPREDNISolone SOD SUC 40 MG/1 ML VIAL IV SCH ×2 (09:21→21:07)
[2018-09-14] MEDS: FOLIC ACID 1 MG TABLET PO SCH (09:21)
[2018-09-14] MEDS: guaiFENesin/DM ER 600-30 MG TABLET PO SCH ×2 (09:21→21:06)
[2018-09-14] MEDS: glipiZIDE 5 MG TABLET PO SCH (09:21)
[2018-09-14] MEDS: MULTIVITAMIN (CENTRUM) TABLET PO SCH (09:21)
[2018-09-14] MEDS: FERROUS SULFATE 325 MG TABLET PO SCH ×2 (09:21→21:06)
[2018-09-14] MEDS: CLORAZEPATE 3.75 MG TABLET PO SCH ×4 (09:21→21:06)
[2018-09-14] MEDS: FLUTICASONE/SALMETEROL 250-50 DISKUS 14 DOSE INH SCH ×2 (09:23→21:07)
[2018-09-14] MEDS: INSULIN LISPRO 100 UNIT/ML SUBCUT SCH ×4 (09:23→21:07)
[2018-09-14] MEDS: POLYETHYLENE GLYCOL POWDER 17 GM PACK PO SCH (09:23)
[2018-09-14] MEDS: SKIN HEALING OINT (AQUAPHOR) 50 GM TUBE TOP SCH (09:23)
[2018-09-14] MEDS: NICOTINE 21 MG/24 HR PATCH TRANSDERM SCH (09:24)
[2018-09-14] MEDS: PANTOPRAZOLE 40 MG TABLET PO SCH (09:25)
[2018-09-14] MEDS: FUROSEMIDE 40 MG/4 ML VIAL IV SCH (09:26)
[2018-09-14] MEDS: THIAMINE 100 MG TABLET PO SCH (09:26)
[2018-09-14] MEDS: cefTRIAXone 2,000 MG in SYRINGE 1 EACH IV SCH (12:49)
[2018-09-14] MEDS: AZITHROMYCIN INJ 500 MG in SODIUM CHLORIDE 0.9% 250 ML IV SCH (17:50)
[2018-09-14] MEDS: ENOXAPARIN 40 MG/0.4 ML SYRINGE SUBCUT SCH (17:52)
[2018-09-14] MEDS ORDERED: TAMSULOSIN 0.4 MG CAPSULE PO SCH (21:00)
[2018-09-15] MEDS: ALBUTEROL/IPRATROPIUM 3 ML NEB RESP TX SCH ×3 (01:08→14:40)
[2018-09-15 05:31] LABS: Basophils # 0.1 10*3/uL (0.0-0.2); Basophils % 0.9 % (0.0-0.8); Hematocrit 36.1 VOL% (42.0-52.0); Hemoglobin 9.8 GM/DL (14.0-18.0); Immature Granulocytes % 6.5 %; Immature Granulocytes Absolute 0.91 #; Lymphocytes # 0.8 10*3/uL (1.4-4.0); Lymphocytes % 5.5 % (21.2-54.2); Mean Corpuscular HGB Conc 27.1 GM/DL (32-36); Mean Corpuscular Hemoglobin 20 PG (27-34); Mean Corpuscular Volume 73.4 FL (87-102); Mean Platelet Volume 9.8 FL (9.6-12.0); Monocytes # 0.8 10*3/uL (0.11-0.8); Monocytes % 5.9 % (1.7-12.7); Neutrophils # 11.3 10*3/uL (1.4-7.4); Neutrophils % 81.2 % (38.7-73.9); Platelet Count 145 T/CUMM (130-400); Red Blood Count 4.92 MC/CUMM (3.8-5.5); Red Cell Distribution Width 23.8 % (9.3-17.3); White Blood Count 13.9 T/CUMM (4-12)
[2018-09-15 05:37] LABS: Calcium 9.1 MG/DL (8.5-10.1); Potassium 4.4 MMOL/L (3.5-5.1)
[2018-09-15 05:57] LABS: Band Neutrophils 4 % (0-10); Hypochromasia 1+; Lymphocytes 5 % (20-55); Platelet Estimate Normal; Segmented Neutrophils 89 % (50-85); Total Cells Counted 100
[2018-09-15 05:58] LABS: Microcytosis 1+
[2018-09-15] MEDS: DORNASE ALFA 2.5 MG/2.5 ML VIAL RESP TX SCH (07:35)
[2018-09-15] MEDS: FERROUS SULFATE 325 MG TABLET PO SCH (08:32)
[2018-09-15] MEDS: CLORAZEPATE 3.75 MG TABLET PO SCH ×2 (08:32→12:48)
[2018-09-15] MEDS: glipiZIDE 5 MG TABLET PO SCH (08:33)
[2018-09-15] MEDS: MULTIVITAMIN (CENTRUM) TABLET PO SCH (08:33)
[2018-09-15] MEDS: FOLIC ACID 1 MG TABLET PO SCH (08:33)
[2018-09-15] MEDS: THIAMINE 100 MG TABLET PO SCH (08:33)
[2018-09-15] MEDS: methylPREDNISolone SOD SUC 40 MG/1 ML VIAL IV SCH (08:34)
[2018-09-15] MEDS: FUROSEMIDE 40 MG/4 ML VIAL IV SCH (08:36)
[2018-09-15] MEDS: INSULIN LISPRO 100 UNIT/ML SUBCUT SCH ×2 (08:39→12:09)
[2018-09-15] MEDS: guaiFENesin/DM ER 600-30 MG TABLET PO SCH (09:24)
[2018-09-15] MEDS ORDERED: predniSONE 20 MG TABLET PO SCH (10:00)
[2018-09-15] MEDS: FLUTICASONE/SALMETEROL 250-50 DISKUS 14 DOSE INH SCH (12:07)
[2018-09-15] MEDS: POLYETHYLENE GLYCOL POWDER 17 GM PACK PO SCH (12:07)
[2018-09-15] MEDS: SKIN HEALING OINT (AQUAPHOR) 50 GM TUBE TOP SCH (12:07)
[2018-09-15] MEDS: PANTOPRAZOLE 40 MG TABLET PO SCH (12:08)
[2018-09-15] MEDS: NICOTINE 21 MG/24 HR PATCH TRANSDERM SCH (12:08)
[2018-09-15] MEDS: cefTRIAXone 2,000 MG in SYRINGE 1 EACH IV SCH (12:48)
[2018-09-15 12:51] LABS: Troponin I 0.123 NG/ML (0.00-0.045)
[2018-09-15 18:08] VITALS: BP 148/87
== END 2018-09-15 17:58 | disposition home health service (06) | DRG 871 ==
LOC: EDUNIT# → EDBD → N.ED 14:02 → SUATTDRO 15:59 → N.EDINP 16:29 → N.CC 17:35 → N.5E 09-11 21:54
PROVIDERS: ADMIT Internal Medicine Geriatric Medicine; ATTEND Internal Medicine

== ENCOUNTER 2018-09-23 12:48 | Inpatient (IN) ==
[2018-09-23] MEDS ORDERED: FUROSEMIDE 40 MG/4 ML VIAL IV STA (13:18)
[2018-09-23] MEDS ORDERED: ALBUTEROL 2.5 MG/3 ML NEB RESP TX STA (13:18)
[2018-09-23 14:48] LABS: Albumin 2.1 G/DL (3.4-5.0); Bilirubin,Total 0.5 MG/DL (0.2-1.0); Calcium 8.1 MG/DL (8.5-10.1); Osmolality,Calculated 284.2 MOS/KG (273-304); Total Protein 5.7 G/DL (6.4-8.3)
[2018-09-23 15:21] LABS: Basophils % 0.1 % (0.0-0.8); Eosinophils # 0.1 10*3/uL (0.0-0.87); Eosinophils % 0.3 % (0.00-10.9); Hematocrit 20.3 VOL% (42.0-52.0); Immature Granulocytes % 1.1 %; Immature Granulocytes Absolute 0.19 #; Lymphocytes # 1.4 10*3/uL (1.4-4.0); Mean Corpuscular HGB Conc 29.1 GM/DL (32-36); Mean Corpuscular Hemoglobin 22 PG (27-34); Mean Corpuscular Volume 74.4 FL (87-102); Mean Platelet Volume 9.8 FL (9.6-12.0); Monocytes # 2.6 10*3/uL (0.11-0.8); Monocytes % 14.7 % (1.7-12.7); Neutrophils # 13.2 10*3/uL (1.4-7.4); Neutrophils % 75.8 % (38.7-73.9); Platelet Count 193 T/CUMM (130-400); Red Blood Count 2.73 MC/CUMM (3.8-5.5); Red Cell Distribution Width 27.4 % (9.3-17.3); White Blood Count 17.4 T/CUMM (4-12)
[2018-09-23 15:23] LABS: Hemoglobin 5.9 GM/DL (14.0-18.0)
[2018-09-23 15:30] LABS: Apearance,Urine Slightly Hazy (Clear); Bilirubin,Urine Negative (Negative); Blood, Urine Negative (Negative); Glucose,Urine (UA) Negative (Negative); Hyaline Casts,Urine 4 /LPF (0-3); Ketones,Urine Negative (Negative); Mucus,Urine Occasional /LPF (Occasional); Nitrite,Urine Negative (Negative); Protein,Urine Negative; RBC,Urine 1 /HPF (0-4); Squamous Epithelial Cell,Urine Occasional /HPF (0-10); Urine Color Yellow (Yellow); Urine Specific Gravity 1.009 (1.001-1.035); Urine Urobilinogen < 2.0 EU/DL (0.2-1.0); WBC,Urine 1 /HPF (0-6)
[2018-09-23] MEDS ORDERED: LORazepam 2 MG/1 ML VIAL IV PRN (15:30)
[2018-09-23] MEDS ORDERED: GLUCAGON 1 MG VIAL IM PRN (15:30)
[2018-09-23] MEDS ORDERED: ALBUTEROL 2.5 MG/3 ML NEB RESP TX PRN (15:30)
[2018-09-23] MEDS ORDERED: ONDANSETRON 4 MG/2 ML VIAL IV PRN (15:30)
[2018-09-23] MEDS ORDERED: DEXTROSE 50% 25 GM/50 ML SYRINGE IV PRN (15:30)
[2018-09-23] MEDS: ACETAMINOPHEN 325 MG TABLET PO PRN ×2 (15:44→21:59)
[2018-09-23] MEDS ORDERED: DICLOFENAC 1% GEL 100 GM TUBE TOP PRN (15:51)
[2018-09-23] MEDS ORDERED: NON-FORMULARY MEDICATION (Albuterol Sulfate [Proair Hfa] 2 PUFF) INH PRN (15:51)
[2018-09-23] MEDS ORDERED: SODIUM CHLORIDE 0.9% 1,000 ML IV PRN (15:57)
[2018-09-23] MEDS ORDERED: TUBERCULIN SKIN TEST 0.1 ML SYRINGE INTRADERM ONE (16:00)
[2018-09-23] MEDS ORDERED: DEXTROSE 50% 25 GM/50 ML VIAL IV PRN (16:30)
[2018-09-23] MEDS: SODIUM CHLORIDE 0.9% 1,000 ML IV SCH (16:33)
[2018-09-23 16:57] LABS: Troponin I 0.047 NG/ML (0.00-0.045)
[2018-09-23] MEDS: INSULIN LISPRO 100 UNIT/ML SUBCUT SCH ×2 (17:23→21:52)
[2018-09-23 18:06] LABS: Hypochromasia 2+; Stomatocytes 2+
[2018-09-23 18:07] LABS: Anisocytosis 2+
[2018-09-23 18:08] LABS: Microcytosis 1+; Poikilocytosis Slight
[2018-09-23 18:09] LABS: Macrocytosis 1+
[2018-09-23 18:10] LABS: Ovalocytes 1+; Platelet Estimate Normal; Polychromasia Few
[2018-09-23] MEDS: ALBUTEROL/IPRATROPIUM 3 ML NEB RESP TX SCH (19:11)
[2018-09-23] MEDS: DORNASE ALFA 2.5 MG/2.5 ML VIAL RESP TX SCH (19:11)
[2018-09-23] MEDS: TAMSULOSIN 0.4 MG CAPSULE PO SCH (21:53)
[2018-09-23] MEDS: FLUTICASONE/SALMETEROL 250-50 DISKUS 14 DOSE INH SCH (21:53)
[2018-09-23] MEDS: DOCUSATE SODIUM 100 MG CAPSULE PO SCH (21:53)
[2018-09-24] MEDS: ALBUTEROL/IPRATROPIUM 3 ML NEB RESP TX SCH ×4 (00:52→19:43)
[2018-09-24] MEDS: CEFTAROLINE 600 MG in SODIUM CHLORIDE 0.9% 100 ML IV SCH ×3 (01:37→20:51)
[2018-09-24 03:32] LABS: Basophils % 0.1 % (0.0-0.8); Eosinophils # 0.1 10*3/uL (0.0-0.87); Eosinophils % 0.4 % (0.00-10.9); Immature Granulocytes % 0.7 %; Immature Granulocytes Absolute 0.09 #; Lymphocytes # 1.3 10*3/uL (1.4-4.0); Mean Corpuscular Hemoglobin 23 PG (27-34); Mean Corpuscular Volume 75.8 FL (87-102); Monocytes # 2.4 10*3/uL (0.11-0.8); Monocytes % 17.6 % (1.7-12.7); Neutrophils # 9.5 10*3/uL (1.4-7.4); Neutrophils % 71.2 % (38.7-73.9); Platelet Count 160 T/CUMM (130-400); Red Blood Count 2.64 MC/CUMM (3.8-5.5); Red Cell Distribution Width 25.6 % (9.3-17.3); White Blood Count 13.3 T/CUMM (4-12)
[2018-09-24 03:36] LABS: Albumin 1.7 G/DL (3.4-5.0); Bilirubin,Direct 0.2 MG/DL (0.0-0.20); Bilirubin,Indirect 0.3 MG/DL (0.0-1.0); Bilirubin,Total 0.5 MG/DL (0.2-1.0); Calcium 7.1 MG/DL (8.5-10.1); Osmolality,Calculated 292.7 MOS/KG (273-304); Potassium 4.2 MMOL/L (3.5-5.1); Total Protein 5.1 G/DL (6.4-8.3)
[2018-09-24 04:14] LABS: Band Neutrophils 4 % (0-10); Eosinophils 1 % (0-10); Lymphocytes 12 % (20-55); Segmented Neutrophils 68 % (50-85); Total Cells Counted 100
[2018-09-24 04:15] LABS: Anisocytosis 1+; Hypochromasia 2+; Ovalocytes 1+; Platelet Estimate Adequate; Tear Drop Cells Few
[2018-09-24] MEDS ORDERED: SODIUM CHLORIDE 0.9% 1,000 ML IV PRN ×2 (04:43→04:52)
[2018-09-24] MEDS: ACETAMINOPHEN 325 MG TABLET PO PRN ×3 (06:00→17:55)
[2018-09-24] MEDS: DORNASE ALFA 2.5 MG/2.5 ML VIAL RESP TX SCH ×2 (06:55→19:48)
[2018-09-24] MEDS: BICALUTAMIDE 50 MG TABLET PO SCH (08:39)
[2018-09-24] MEDS: FUROSEMIDE 40 MG TABLET PO SCH (08:39)
[2018-09-24] MEDS: PANTOPRAZOLE 40 MG TABLET PO SCH (08:39)
[2018-09-24] MEDS: glipiZIDE 5 MG TABLET PO SCH (08:39)
[2018-09-24] MEDS: DOCUSATE SODIUM 100 MG CAPSULE PO SCH ×2 (08:40→20:52)
[2018-09-24] MEDS: THIAMINE 100 MG TABLET PO SCH (08:40)
[2018-09-24] MEDS: INSULIN LISPRO 100 UNIT/ML SUBCUT SCH ×4 (08:40→20:57)
[2018-09-24] MEDS: FLUTICASONE/SALMETEROL 250-50 DISKUS 14 DOSE INH SCH ×3 (08:40→20:57)
[2018-09-24] MEDS ORDERED: traMADol 50 MG TABLET PO PRN (09:18)
[2018-09-24] MEDS: LOSARTAN 50 MG TABLET PO SCH (09:48)
[2018-09-24 13:30] LABS: Hematocrit 22.7 VOL% (42.0-52.0); Hemoglobin 6.9 GM/DL (14.0-18.0)
[2018-09-24 18:03] LABS: Troponin I 0.042 NG/ML (0.00-0.045)
[2018-09-24] MEDS: TAMSULOSIN 0.4 MG CAPSULE PO SCH (20:52)
[2018-09-25] MEDS: ALBUTEROL/IPRATROPIUM 3 ML NEB RESP TX SCH ×5 (01:10→23:59)
[2018-09-25 01:53] LABS: Basophils % 0.1 % (0.0-0.8); Eosinophils # 0.1 10*3/uL (0.0-0.87); Eosinophils % 0.8 % (0.00-10.9); Hematocrit 23.7 VOL% (42.0-52.0); Hemoglobin 7.2 GM/DL (14.0-18.0); Immature Granulocytes % 0.6 %; Immature Granulocytes Absolute 0.07 #; Lymphocytes # 1.5 10*3/uL (1.4-4.0); Lymphocytes % 13.1 % (21.2-54.2); Mean Corpuscular HGB Conc 30.4 GM/DL (32-36); Mean Corpuscular Hemoglobin 24 PG (27-34); Mean Corpuscular Volume 80.1 FL (87-102); Mean Platelet Volume 9.7 FL (9.6-12.0); Monocytes # 1.8 10*3/uL (0.11-0.8); Monocytes % 15.1 % (1.7-12.7); Neutrophils # 8.1 10*3/uL (1.4-7.4); Neutrophils % 70.3 % (38.7-73.9); Platelet Count 146 T/CUMM (130-400); Red Blood Count 2.96 MC/CUMM (3.8-5.5); Red Cell Distribution Width 25.2 % (9.3-17.3); White Blood Count 11.6 T/CUMM (4-12)
[2018-09-25 02:05] LABS: Calcium 7.8 MG/DL (8.5-10.1); Osmolality,Calculated 292.3 MOS/KG (273-304); Potassium 4.1 MMOL/L (3.5-5.1)
[2018-09-25 02:09] LABS: Troponin I 0.036 NG/ML (0.00-0.045)
[2018-09-25] MEDS: SODIUM CHLORIDE 0.9% 1,000 ML IV SCH (05:16)
[2018-09-25] MEDS: DORNASE ALFA 2.5 MG/2.5 ML VIAL RESP TX SCH ×2 (07:07→19:15)
[2018-09-25] MEDS: CEFTAROLINE 600 MG in SODIUM CHLORIDE 0.9% 100 ML IV SCH ×2 (08:47→20:10)
[2018-09-25] MEDS: FUROSEMIDE 40 MG TABLET PO SCH (08:49)
[2018-09-25] MEDS: THIAMINE 100 MG TABLET PO SCH (08:49)
[2018-09-25] MEDS: BICALUTAMIDE 50 MG TABLET PO SCH (08:49)
[2018-09-25] MEDS: INSULIN LISPRO 100 UNIT/ML SUBCUT SCH ×4 (08:50→20:10)
[2018-09-25] MEDS: FLUTICASONE/SALMETEROL 250-50 DISKUS 14 DOSE INH SCH ×2 (08:51→20:11)
[2018-09-25] MEDS: glipiZIDE 5 MG TABLET PO SCH (08:51)
[2018-09-25] MEDS: PANTOPRAZOLE 40 MG TABLET PO SCH (08:52)
[2018-09-25] MEDS: DOCUSATE SODIUM 100 MG CAPSULE PO SCH ×2 (08:52→20:11)
[2018-09-25] MEDS: LOSARTAN 50 MG TABLET PO SCH (08:52)
[2018-09-25 09:46] LABS: Troponin I 0.041 NG/ML (0.00-0.045)
[2018-09-25] MEDS: ACETAMINOPHEN 325 MG TABLET PO PRN ×2 (12:06→18:10)
[2018-09-25] MEDS: TAMSULOSIN 0.4 MG CAPSULE PO SCH (20:11)
[2018-09-25] MEDS: ROSUVASTATIN 20 MG TABLET PO SCH (20:11)
[2018-09-26] MEDS: ACETAMINOPHEN 325 MG TABLET PO PRN ×2 (00:44→14:49)
[2018-09-26] MEDS: SODIUM CHLORIDE 0.9% 1,000 ML IV SCH (03:00)
[2018-09-26 05:37] LABS: Basophils % 0.1 % (0.0-0.8); Eosinophils # 0.1 10*3/uL (0.0-0.87); Eosinophils % 0.9 % (0.00-10.9); Hematocrit 22.5 VOL% (42.0-52.0); Hemoglobin 6.7 GM/DL (14.0-18.0); Immature Granulocytes % 0.9 %; Immature Granulocytes Absolute 0.07 #; Lymphocytes # 1.1 10*3/uL (1.4-4.0); Lymphocytes % 14.2 % (21.2-54.2); Mean Corpuscular HGB Conc 29.8 GM/DL (32-36); Mean Corpuscular Hemoglobin 24 PG (27-34); Mean Corpuscular Volume 81.2 FL (87-102); Monocytes # 1.2 10*3/uL (0.11-0.8); Monocytes % 14.8 % (1.7-12.7); Neutrophils # 5.4 10*3/uL (1.4-7.4); Neutrophils % 69.1 % (38.7-73.9); Platelet Count 162 T/CUMM (130-400); Red Blood Count 2.77 MC/CUMM (3.8-5.5); Red Cell Distribution Width 25.6 % (9.3-17.3); White Blood Count 7.8 T/CUMM (4-12)
[2018-09-26 05:50] LABS: Osmolality,Calculated 286.3 MOS/KG (273-304); Potassium 3.5 MMOL/L (3.5-5.1)
[2018-09-26] MEDS: ALBUTEROL/IPRATROPIUM 3 ML NEB RESP TX SCH ×3 (06:55→19:38)
[2018-09-26] MEDS: DORNASE ALFA 2.5 MG/2.5 ML VIAL RESP TX SCH ×2 (06:55→19:38)
[2018-09-26] MEDS: INSULIN LISPRO 100 UNIT/ML SUBCUT SCH ×4 (07:16→22:12)
[2018-09-26] MEDS ORDERED: FUROSEMIDE 20 MG/2 ML VIAL IV PRN (08:15)
[2018-09-26] MEDS ORDERED: SODIUM CHLORIDE 0.9% 1,000 ML IV PRN (08:15)
[2018-09-26] MEDS: glipiZIDE 5 MG TABLET PO SCH (08:38)
[2018-09-26] MEDS: CEFTAROLINE 600 MG in SODIUM CHLORIDE 0.9% 100 ML IV SCH ×2 (08:42→20:48)
[2018-09-26] MEDS ORDERED: ETOMIDATE 20 MG/10 ML VIAL IV ONE (09:00)
[2018-09-26] MEDS ORDERED: LIDOCAINE 100 MG/5 ML SYRINGE ONE (09:00)
[2018-09-26] MEDS ORDERED: PROPOFOL 200 MG/20 ML VIAL IV ONE (09:00)
[2018-09-26] MEDS ORDERED: FUROSEMIDE 20 MG/2 ML VIAL ONE (14:40)
[2018-09-26] MEDS: FUROSEMIDE 40 MG TABLET PO SCH (14:51)
[2018-09-26] MEDS: DOCUSATE SODIUM 100 MG CAPSULE PO SCH ×2 (14:51→20:47)
[2018-09-26] MEDS: LOSARTAN 50 MG TABLET PO SCH (14:51)
[2018-09-26] MEDS: FLUTICASONE/SALMETEROL 250-50 DISKUS 14 DOSE INH SCH ×2 (14:52→22:12)
[2018-09-26] MEDS: BICALUTAMIDE 50 MG TABLET PO SCH (14:58)
[2018-09-26] MEDS: THIAMINE 100 MG TABLET PO SCH (15:56)
[2018-09-26] MEDS: PANTOPRAZOLE 40 MG TABLET PO SCH (15:56)
[2018-09-26] MEDS ORDERED: MAGNESIUM SULF INJ 2 GM in SODIUM CHLORIDE 0.9% 1,000 ML IV PRN (17:37)
[2018-09-26] MEDS: MAGNESIUM SULF INJ 2 GM in SODIUM CHLORIDE 0.9% 1,000 ML IV SCH (18:09)
[2018-09-26 20:10] LABS: Hematocrit 25.9 VOL% (42.0-52.0); Hemoglobin 7.9 GM/DL (14.0-18.0)
[2018-09-26] MEDS: TAMSULOSIN 0.4 MG CAPSULE PO SCH (20:47)
[2018-09-26] MEDS: DESITIN 4OZ/NYSTATIN 15 GRAM MIXTURE PASTE TOP SCH (20:48)
[2018-09-26] MEDS: ROSUVASTATIN 20 MG TABLET PO SCH (20:48)
[2018-09-27] MEDS: ALBUTEROL/IPRATROPIUM 3 ML NEB RESP TX SCH ×4 (00:25→20:50)
[2018-09-27] MEDS: ACETAMINOPHEN 325 MG TABLET PO PRN ×3 (00:35→23:31)
[2018-09-27 05:56] LABS: Basophils % 0.3 % (0.0-0.8); Eosinophils # 0.1 10*3/uL (0.0-0.87); Eosinophils % 1.5 % (0.00-10.9); Hematocrit 26.1 VOL% (42.0-52.0); Hemoglobin 7.8 GM/DL (14.0-18.0); Immature Granulocytes % 0.3 %; Immature Granulocytes Absolute 0.02 #; Lymphocytes % 14.9 % (21.2-54.2); Mean Corpuscular HGB Conc 29.9 GM/DL (32-36); Mean Corpuscular Hemoglobin 25 PG (27-34); Mean Corpuscular Volume 83.7 FL (87-102); Mean Platelet Volume 9.3 FL (9.6-12.0); Monocytes # 1.1 10*3/uL (0.11-0.8); Monocytes % 16.2 % (1.7-12.7); Neutrophils # 4.4 10*3/uL (1.4-7.4); Neutrophils % 66.8 % (38.7-73.9); Platelet Count 142 T/CUMM (130-400); Red Blood Count 3.12 MC/CUMM (3.8-5.5); Red Cell Distribution Width 23.9 % (9.3-17.3); White Blood Count 6.7 T/CUMM (4-12)
[2018-09-27 06:21] LABS: Calcium 7.7 MG/DL (8.5-10.1); Osmolality,Calculated 283.1 MOS/KG (273-304); Potassium 3.5 MMOL/L (3.5-5.1)
[2018-09-27 06:32] LABS: Eosinophils 3 % (0-10); Hypochromasia 2+; Lymphocytes 20 % (20-55); Segmented Neutrophils 70 % (50-85); Total Cells Counted 100
[2018-09-27 06:33] LABS: Elliptocytes Few; Microcytosis 1+; Platelet Estimate Normal
[2018-09-27] MEDS: DORNASE ALFA 2.5 MG/2.5 ML VIAL RESP TX SCH ×2 (07:01→20:50)
[2018-09-27] MEDS: INSULIN LISPRO 100 UNIT/ML SUBCUT SCH ×4 (07:42→21:21)
[2018-09-27] MEDS: glipiZIDE 5 MG TABLET PO SCH (08:46)
[2018-09-27] MEDS: LOSARTAN 50 MG TABLET PO SCH (08:47)
[2018-09-27] MEDS: FLUTICASONE/SALMETEROL 250-50 DISKUS 14 DOSE INH SCH ×2 (08:47→21:17)
[2018-09-27] MEDS: BICALUTAMIDE 50 MG TABLET PO SCH (08:47)
[2018-09-27] MEDS: DOCUSATE SODIUM 100 MG CAPSULE PO SCH ×2 (08:47→21:20)
[2018-09-27] MEDS: THIAMINE 100 MG TABLET PO SCH (09:03)
[2018-09-27] MEDS: FUROSEMIDE 40 MG TABLET PO SCH (09:03)
[2018-09-27] MEDS: PANTOPRAZOLE 40 MG TABLET PO SCH (09:03)
[2018-09-27] MEDS: DESITIN 4OZ/NYSTATIN 15 GRAM MIXTURE PASTE TOP SCH ×2 (09:04→21:23)
[2018-09-27] MEDS: CEFTAROLINE 600 MG in SODIUM CHLORIDE 0.9% 100 ML IV SCH ×2 (09:04→21:21)
[2018-09-27] MEDS: MAGNESIUM SULF INJ 2 GM in SODIUM CHLORIDE 0.9% 1,000 ML IV SCH (17:32)
[2018-09-27] MEDS: TAMSULOSIN 0.4 MG CAPSULE PO SCH (21:19)
[2018-09-27] MEDS: ROSUVASTATIN 20 MG TABLET PO SCH (21:20)
[2018-09-27] MEDS: ZINC OXIDE PASTE 113 GM TUBE TOP PRN (21:21)
[2018-09-27] MEDS: MAGNESIUM CHLORIDE 64 MG TABLET PO SCH (21:22)
[2018-09-27] MEDS: FERROUS SULFATE 325 MG TABLET PO SCH (21:23)
[2018-09-28] MEDS: ALBUTEROL/IPRATROPIUM 3 ML NEB RESP TX SCH ×4 (01:10→19:38)
[2018-09-28 04:50] LABS: Basophils % 0.5 % (0.0-0.8); Eosinophils # 0.1 10*3/uL (0.0-0.87); Eosinophils % 1.7 % (0.00-10.9); Hematocrit 23.7 VOL% (42.0-52.0); Immature Granulocytes % 0.2 %; Immature Granulocytes Absolute 0.01 #; Lymphocytes # 1.2 10*3/uL (1.4-4.0); Mean Corpuscular HGB Conc 29.5 GM/DL (32-36); Mean Corpuscular Hemoglobin 25 PG (27-34); Mean Corpuscular Volume 83.7 FL (87-102); Mean Platelet Volume 9.4 FL (9.6-12.0); Monocytes % 16.4 % (1.7-12.7); Neutrophils # 3.5 10*3/uL (1.4-7.4); Neutrophils % 61.2 % (38.7-73.9); Platelet Count 150 T/CUMM (130-400); Red Blood Count 2.83 MC/CUMM (3.8-5.5); Red Cell Distribution Width 23.8 % (9.3-17.3); White Blood Count 5.8 T/CUMM (4-12)
[2018-09-28 05:24] LABS: Calcium 7.5 MG/DL (8.5-10.1); Osmolality,Calculated 286.8 MOS/KG (273-304); Potassium 3.2 MMOL/L (3.5-5.1)
[2018-09-28 05:57] LABS: Eosinophils 1 % (0-10); Hypochromasia 1+; Lymphocytes 21 % (20-55); Microcytosis Slight; Ovalocytes Slight; Platelet Estimate Normal; Segmented Neutrophils 64 % (50-85); Total Cells Counted 100
[2018-09-28] MEDS: DORNASE ALFA 2.5 MG/2.5 ML VIAL RESP TX SCH ×2 (06:42→19:38)
[2018-09-28] MEDS: INSULIN LISPRO 100 UNIT/ML SUBCUT SCH ×4 (08:43→20:59)
[2018-09-28] MEDS: DOCUSATE SODIUM 100 MG CAPSULE PO SCH ×2 (08:43→20:50)
[2018-09-28] MEDS: glipiZIDE 5 MG TABLET PO SCH (08:43)
[2018-09-28] MEDS: BICALUTAMIDE 50 MG TABLET PO SCH (08:43)
[2018-09-28] MEDS: FLUTICASONE/SALMETEROL 250-50 DISKUS 14 DOSE INH SCH ×2 (08:43→20:50)
[2018-09-28] MEDS: LOSARTAN 50 MG TABLET PO SCH (08:44)
[2018-09-28] MEDS: CEFTAROLINE 600 MG in SODIUM CHLORIDE 0.9% 100 ML IV SCH ×2 (09:52→20:51)
[2018-09-28] MEDS: MAGNESIUM CHLORIDE 64 MG TABLET PO SCH ×2 (09:52→20:47)
[2018-09-28] MEDS: FERROUS SULFATE 325 MG TABLET PO SCH ×2 (09:52→20:45)
[2018-09-28] MEDS: FUROSEMIDE 40 MG TABLET PO SCH (09:52)
[2018-09-28] MEDS: PANTOPRAZOLE 40 MG TABLET PO SCH (09:52)
[2018-09-28] MEDS: MULTIVITAMIN (CENTRUM) TABLET PO SCH (09:52)
[2018-09-28] MEDS: FOLIC ACID 1 MG TABLET PO SCH (09:52)
[2018-09-28] MEDS: THIAMINE 100 MG TABLET PO SCH (09:52)
[2018-09-28] MEDS: DESITIN 4OZ/NYSTATIN 15 GRAM MIXTURE PASTE TOP SCH ×2 (09:53→21:00)
[2018-09-28] MEDS ORDERED: SODIUM CHLORIDE 0.9% 1,000 ML IV PRN ×5 (11:49→12:20)
[2018-09-28] MEDS: POTASSIUM CHLORIDE RIDER 10 MEQ in PREMIX 1 EACH IV SCH ×2 (13:08→19:27)
[2018-09-28] MEDS: MAGNESIUM SULF INJ 2 GM in SODIUM CHLORIDE 0.9% 1,000 ML IV SCH (13:09)
[2018-09-28 13:20] LABS: Basophils % 0.5 % (0.0-0.8); Eosinophils # 0.1 10*3/uL (0.0-0.87); Eosinophils % 1.5 % (0.00-10.9); Hemoglobin 7.5 GM/DL (14.0-18.0); Immature Granulocytes % 0.3 %; Immature Granulocytes Absolute 0.02 #; Lymphocytes # 0.9 10*3/uL (1.4-4.0); Lymphocytes % 15.5 % (21.2-54.2); Mean Corpuscular HGB Conc 28.8 GM/DL (32-36); Mean Corpuscular Hemoglobin 25 PG (27-34); Mean Corpuscular Volume 86.4 FL (87-102); Mean Platelet Volume 9.5 FL (9.6-12.0); Monocytes # 0.7 10*3/uL (0.11-0.8); Monocytes % 12.6 % (1.7-12.7); Neutrophils % 69.6 % (38.7-73.9); Platelet Count 157 T/CUMM (130-400); Red Blood Count 3.01 MC/CUMM (3.8-5.5); Red Cell Distribution Width 23.9 % (9.3-17.3); White Blood Count 5.8 T/CUMM (4-12)
[2018-09-28 13:49] LABS: Hypochromasia 1+; Microcytosis 1+; Platelet Estimate Adequate; Polychromasia Few
[2018-09-28 14:10] LABS: Folate > 24.0 NG/ML (5.4-24.0); Vitamin B12 1777 PG/ML (211-911)
[2018-09-28 14:23] LABS: Sedimentation Rate-Westergren 67 MM/HR (0-20)
[2018-09-28] MEDS ORDERED: POLYETHYLENE GLYCOL POWDER 255 GM BOTTLE PO ONE (17:38)
[2018-09-28] MEDS: ACETAMINOPHEN 325 MG TABLET PO PRN (20:46)
[2018-09-28] MEDS: TAMSULOSIN 0.4 MG CAPSULE PO SCH (20:47)
[2018-09-28] MEDS: ROSUVASTATIN 20 MG TABLET PO SCH (20:50)
[2018-09-29] MEDS: ALBUTEROL/IPRATROPIUM 3 ML NEB RESP TX SCH ×4 (01:06→20:01)
[2018-09-29 05:08] LABS: Basophils % 0.5 % (0.0-0.8); Eosinophils # 0.2 10*3/uL (0.0-0.87); Eosinophils % 3.3 % (0.00-10.9); Hematocrit 29.1 VOL% (42.0-52.0); Hemoglobin 8.8 GM/DL (14.0-18.0); Immature Granulocytes % 0.4 %; Immature Granulocytes Absolute 0.02 #; Lymphocytes % 17.2 % (21.2-54.2); Mean Corpuscular HGB Conc 30.2 GM/DL (32-36); Mean Corpuscular Hemoglobin 26 PG (27-34); Mean Corpuscular Volume 84.6 FL (87-102); Mean Platelet Volume 9.7 FL (9.6-12.0); Monocytes # 0.9 10*3/uL (0.11-0.8); Monocytes % 14.9 % (1.7-12.7); Neutrophils # 3.6 10*3/uL (1.4-7.4); Neutrophils % 63.7 % (38.7-73.9); Platelet Count 144 T/CUMM (130-400); Red Blood Count 3.44 MC/CUMM (3.8-5.5); Red Cell Distribution Width 21.8 % (9.3-17.3); White Blood Count 5.7 T/CUMM (4-12)
[2018-09-29 05:34] LABS: Calcium 7.6 MG/DL (8.5-10.1); Osmolality,Calculated 283.1 MOS/KG (273-304); Potassium 3.3 MMOL/L (3.5-5.1)
[2018-09-29] MEDS ORDERED: POLYETHYLENE GLYCOL POWDER 255 GM BOTTLE PO ONE ×2 (06:00→13:00)
[2018-09-29] MEDS: DORNASE ALFA 2.5 MG/2.5 ML VIAL RESP TX SCH ×2 (07:08→20:01)
[2018-09-29] MEDS: glipiZIDE 5 MG TABLET PO SCH (08:06)
[2018-09-29] MEDS: INSULIN LISPRO 100 UNIT/ML SUBCUT SCH ×4 (08:06→21:37)
[2018-09-29] MEDS: MULTIVITAMIN (CENTRUM) TABLET PO SCH (08:07)
[2018-09-29] MEDS: BICALUTAMIDE 50 MG TABLET PO SCH (08:07)
[2018-09-29] MEDS: LOSARTAN 50 MG TABLET PO SCH (08:07)
[2018-09-29] MEDS: DOCUSATE SODIUM 100 MG CAPSULE PO SCH ×2 (08:07→21:43)
[2018-09-29] MEDS: FERROUS SULFATE 325 MG TABLET PO SCH ×2 (08:08→21:43)
[2018-09-29] MEDS: PANTOPRAZOLE 40 MG TABLET PO SCH (08:08)
[2018-09-29] MEDS: MAGNESIUM CHLORIDE 64 MG TABLET PO SCH ×2 (08:08→21:43)
[2018-09-29] MEDS: FOLIC ACID 1 MG TABLET PO SCH (08:08)
[2018-09-29] MEDS: FUROSEMIDE 40 MG TABLET PO SCH (08:08)
[2018-09-29] MEDS: THIAMINE 100 MG TABLET PO SCH (08:09)
[2018-09-29] MEDS: MAGNESIUM SULF INJ 2 GM in SODIUM CHLORIDE 0.9% 1,000 ML IV SCH ×2 (08:53→14:55)
[2018-09-29] MEDS: FLUTICASONE/SALMETEROL 250-50 DISKUS 14 DOSE INH SCH ×2 (08:54→21:42)
[2018-09-29] MEDS: DESITIN 4OZ/NYSTATIN 15 GRAM MIXTURE PASTE TOP SCH ×2 (08:57→23:40)
[2018-09-29] MEDS: CEFTAROLINE 600 MG in SODIUM CHLORIDE 0.9% 100 ML IV SCH ×2 (08:59→21:46)
[2018-09-29 09:15] LABS: Hemoglobin A1 (Alkaline) 96.7 % (96.5-98.5); Hemoglobin A2 (Alkaline) 3.3 % (1.5-3.5)
[2018-09-29] MEDS: TAMSULOSIN 0.4 MG CAPSULE PO SCH (21:42)
[2018-09-29] MEDS: ROSUVASTATIN 20 MG TABLET PO SCH (21:43)
[2018-09-29] MEDS: ZINC OXIDE PASTE 113 GM TUBE TOP PRN (21:44)
[2018-09-30] MEDS: ALBUTEROL/IPRATROPIUM 3 ML NEB RESP TX SCH ×4 (01:56→19:50)
[2018-09-30] MEDS: DORNASE ALFA 2.5 MG/2.5 ML VIAL RESP TX SCH ×2 (07:38→23:40)
[2018-09-30] MEDS: INSULIN LISPRO 100 UNIT/ML SUBCUT SCH ×4 (08:44→21:31)
[2018-09-30] MEDS: glipiZIDE 5 MG TABLET PO SCH (08:44)
[2018-09-30] MEDS: MULTIVITAMIN (CENTRUM) TABLET PO SCH (08:45)
[2018-09-30] MEDS: BICALUTAMIDE 50 MG TABLET PO SCH (08:45)
[2018-09-30] MEDS: FERROUS SULFATE 325 MG TABLET PO SCH ×2 (08:46→20:59)
[2018-09-30] MEDS: LOSARTAN 50 MG TABLET PO SCH (08:46)
[2018-09-30] MEDS: DOCUSATE SODIUM 100 MG CAPSULE PO SCH ×2 (08:46→20:58)
[2018-09-30] MEDS: FOLIC ACID 1 MG TABLET PO SCH (08:46)
[2018-09-30] MEDS: PANTOPRAZOLE 40 MG TABLET PO SCH (08:47)
[2018-09-30] MEDS: FUROSEMIDE 40 MG TABLET PO SCH (08:47)
[2018-09-30] MEDS: THIAMINE 100 MG TABLET PO SCH (08:47)
[2018-09-30] MEDS: MAGNESIUM CHLORIDE 64 MG TABLET PO SCH ×2 (08:47→20:59)
[2018-09-30] MEDS: CEFTAROLINE 600 MG in SODIUM CHLORIDE 0.9% 100 ML IV SCH ×2 (08:53→21:00)
[2018-09-30] MEDS: DESITIN 4OZ/NYSTATIN 15 GRAM MIXTURE PASTE TOP SCH ×2 (08:58→21:00)
[2018-09-30] MEDS: FLUTICASONE/SALMETEROL 250-50 DISKUS 14 DOSE INH SCH ×2 (08:59→20:59)
[2018-09-30 10:18] LABS: Basophils % 0.5 % (0.0-0.8); Eosinophils # 0.2 10*3/uL (0.0-0.87); Eosinophils % 3.2 % (0.00-10.9); Hematocrit 27.4 VOL% (42.0-52.0); Hemoglobin 8.3 GM/DL (14.0-18.0); Immature Granulocytes % 0.5 %; Immature Granulocytes Absolute 0.03 #; Lymphocytes # 0.8 10*3/uL (1.4-4.0); Lymphocytes % 14.3 % (21.2-54.2); Mean Corpuscular HGB Conc 30.3 GM/DL (32-36); Mean Corpuscular Hemoglobin 26 PG (27-34); Mean Corpuscular Volume 86.2 FL (87-102); Mean Platelet Volume 9.2 FL (9.6-12.0); Monocytes # 0.7 10*3/uL (0.11-0.8); Monocytes % 11.7 % (1.7-12.7); Neutrophils # 3.9 10*3/uL (1.4-7.4); Neutrophils % 69.8 % (38.7-73.9); Platelet Count 143 T/CUMM (130-400); Red Blood Count 3.18 MC/CUMM (3.8-5.5); Red Cell Distribution Width 21.5 % (9.3-17.3); White Blood Count 5.5 T/CUMM (4-12)
[2018-09-30 10:32] LABS: Calcium 7.7 MG/DL (8.5-10.1); Potassium 3.2 MMOL/L (3.5-5.1)
[2018-09-30] MEDS ORDERED: ETOMIDATE 20 MG/10 ML VIAL IV ONE (13:14)
[2018-09-30] MEDS ORDERED: PROPOFOL 200 MG/20 ML VIAL IV ONE (13:14)
[2018-09-30] MEDS ORDERED: LIDOCAINE 100 MG/5 ML SYRINGE ONE (13:14)
[2018-09-30] MEDS: TAMSULOSIN 0.4 MG CAPSULE PO SCH (20:58)
[2018-09-30] MEDS: ROSUVASTATIN 20 MG TABLET PO SCH (20:59)
[2018-09-30] MEDS: MAGNESIUM SULF INJ 2 GM in SODIUM CHLORIDE 0.9% 1,000 ML IV SCH (21:12)
[2018-10-01] MEDS: ALBUTEROL/IPRATROPIUM 3 ML NEB RESP TX SCH ×4 (02:05→19:49)
[2018-10-01 05:50] LABS: Calcium 7.5 MG/DL (8.5-10.1); Osmolality,Calculated 284.7 MOS/KG (273-304); Potassium 3.3 MMOL/L (3.5-5.1)
[2018-10-01 05:51] LABS: Basophils % 0.7 % (0.0-0.8); Eosinophils # 0.1 10*3/uL (0.0-0.87); Hematocrit 25.2 VOL% (42.0-52.0); Immature Granulocytes % 0.5 %; Immature Granulocytes Absolute 0.02 #; Lymphocytes % 23.3 % (21.2-54.2); Mean Corpuscular HGB Conc 29.8 GM/DL (32-36); Mean Corpuscular Hemoglobin 26 PG (27-34); Mean Corpuscular Volume 85.7 FL (87-102); Mean Platelet Volume 9.9 FL (9.6-12.0); Monocytes # 0.6 10*3/uL (0.11-0.8); Monocytes % 14.9 % (1.7-12.7); Neutrophils # 2.5 10*3/uL (1.4-7.4); Neutrophils % 57.6 % (38.7-73.9); Platelet Count 159 T/CUMM (130-400); Red Blood Count 2.94 MC/CUMM (3.8-5.5); Red Cell Distribution Width 21.5 % (9.3-17.3); White Blood Count 4.3 T/CUMM (4-12)
[2018-10-01 05:53] LABS: Hemoglobin 7.5 GM/DL (14.0-18.0)
[2018-10-01] MEDS: DORNASE ALFA 2.5 MG/2.5 ML VIAL RESP TX SCH ×2 (07:21→19:49)
[2018-10-01] MEDS ORDERED: SODIUM CHLORIDE 0.9% 1,000 ML IV PRN (08:48)
[2018-10-01] MEDS ORDERED: FUROSEMIDE 20 MG/2 ML VIAL IV ONE ×4 (08:51→17:00)
[2018-10-01] MEDS: INSULIN LISPRO 100 UNIT/ML SUBCUT SCH ×4 (09:12→20:19)
[2018-10-01] MEDS: BICALUTAMIDE 50 MG TABLET PO SCH (09:17)
[2018-10-01] MEDS: THIAMINE 100 MG TABLET PO SCH (09:17)
[2018-10-01] MEDS: FUROSEMIDE 40 MG TABLET PO SCH (09:18)
[2018-10-01] MEDS: glipiZIDE 5 MG TABLET PO SCH (09:18)
[2018-10-01] MEDS: MULTIVITAMIN (CENTRUM) TABLET PO SCH (09:18)
[2018-10-01] MEDS: MAGNESIUM CHLORIDE 64 MG TABLET PO SCH ×2 (09:18→20:19)
[2018-10-01] MEDS: LOSARTAN 50 MG TABLET PO SCH (09:18)
[2018-10-01] MEDS: FOLIC ACID 1 MG TABLET PO SCH (09:19)
[2018-10-01] MEDS: DOCUSATE SODIUM 100 MG CAPSULE PO SCH ×2 (09:19→20:18)
[2018-10-01] MEDS: PANTOPRAZOLE 40 MG TABLET PO SCH (09:19)
[2018-10-01] MEDS: FERROUS SULFATE 325 MG TABLET PO SCH ×2 (09:19→20:17)
[2018-10-01] MEDS: DESITIN 4OZ/NYSTATIN 15 GRAM MIXTURE PASTE TOP SCH ×2 (09:20→20:18)
[2018-10-01] MEDS: FLUTICASONE/SALMETEROL 250-50 DISKUS 14 DOSE INH SCH ×2 (09:21→20:18)
[2018-10-01] MEDS: MAGNESIUM SULF INJ 2 GM in SODIUM CHLORIDE 0.9% 1,000 ML IV SCH (18:48)
[2018-10-01] MEDS: POTASSIUM CHLORIDE 20 MEQ TABLET PO SCH (20:17)
[2018-10-01] MEDS: TAMSULOSIN 0.4 MG CAPSULE PO SCH (20:17)
[2018-10-01] MEDS: ROSUVASTATIN 20 MG TABLET PO SCH (20:24)
[2018-10-02] MEDS: ALBUTEROL/IPRATROPIUM 3 ML NEB RESP TX SCH ×4 (01:04→19:31)
[2018-10-02 04:30] LABS: Basophils % 0.6 % (0.0-0.8); Eosinophils # 0.1 10*3/uL (0.0-0.87); Eosinophils % 2.8 % (0.00-10.9); Hematocrit 29.5 VOL% (42.0-52.0); Hemoglobin 8.9 GM/DL (14.0-18.0); Immature Granulocytes % 0.2 %; Immature Granulocytes Absolute 0.01 #; Lymphocytes # 1.1 10*3/uL (1.4-4.0); Lymphocytes % 24.4 % (21.2-54.2); Mean Corpuscular HGB Conc 30.2 GM/DL (32-36); Mean Corpuscular Hemoglobin 26 PG (27-34); Mean Platelet Volume 9.3 FL (9.6-12.0); Monocytes # 0.7 10*3/uL (0.11-0.8); Monocytes % 14.9 % (1.7-12.7); Neutrophils # 2.7 10*3/uL (1.4-7.4); Neutrophils % 57.1 % (38.7-73.9); Platelet Count 144 T/CUMM (130-400); Red Blood Count 3.39 MC/CUMM (3.8-5.5); Red Cell Distribution Width 19.7 % (9.3-17.3); White Blood Count 4.6 T/CUMM (4-12)
[2018-10-02 04:44] LABS: Calcium 7.5 MG/DL (8.5-10.1); Osmolality,Calculated 286.6 MOS/KG (273-304); Potassium 3.2 MMOL/L (3.5-5.1)
[2018-10-02] MEDS: DORNASE ALFA 2.5 MG/2.5 ML VIAL RESP TX SCH ×2 (07:10→19:40)
[2018-10-02] MEDS: MAGNESIUM SULF INJ 2 GM in SODIUM CHLORIDE 0.9% 1,000 ML IV SCH (07:44)
[2018-10-02] MEDS: glipiZIDE 5 MG TABLET PO SCH (07:57)
[2018-10-02] MEDS: INSULIN LISPRO 100 UNIT/ML SUBCUT SCH ×4 (07:57→22:42)
[2018-10-02] MEDS: THIAMINE 100 MG TABLET PO SCH (08:46)
[2018-10-02] MEDS: MULTIVITAMIN (CENTRUM) TABLET PO SCH (08:46)
[2018-10-02] MEDS: FUROSEMIDE 40 MG TABLET PO SCH (08:46)
[2018-10-02] MEDS: MAGNESIUM CHLORIDE 64 MG TABLET PO SCH ×2 (08:46→20:14)
[2018-10-02] MEDS: FOLIC ACID 1 MG TABLET PO SCH (08:47)
[2018-10-02] MEDS: POTASSIUM CHLORIDE 20 MEQ TABLET PO SCH ×2 (08:47→20:13)
[2018-10-02] MEDS: FERROUS SULFATE 325 MG TABLET PO SCH ×2 (08:47→20:13)
[2018-10-02] MEDS: PANTOPRAZOLE 40 MG TABLET PO SCH (08:47)
[2018-10-02] MEDS: BICALUTAMIDE 50 MG TABLET PO SCH (08:55)
[2018-10-02] MEDS: DOCUSATE SODIUM 100 MG CAPSULE PO SCH ×2 (08:55→20:12)
[2018-10-02] MEDS: LOSARTAN 50 MG TABLET PO SCH (08:56)
[2018-10-02] MEDS: DESITIN 4OZ/NYSTATIN 15 GRAM MIXTURE PASTE TOP SCH ×2 (08:56→20:12)
[2018-10-02] MEDS: FLUTICASONE/SALMETEROL 250-50 DISKUS 14 DOSE INH SCH ×2 (11:24→20:12)
[2018-10-02] MEDS ORDERED: IRON DEXTRAN 25 MG in SYRINGE 1 EACH IV ONE (14:53)
[2018-10-02] MEDS ORDERED: SODIUM CHLORIDE 0.9% IV ONE (17:00)
[2018-10-02] MEDS ORDERED: IRON DEXTRAN IV ONE (17:00)
[2018-10-02] MEDS: TAMSULOSIN 0.4 MG CAPSULE PO SCH (20:13)
[2018-10-02] MEDS: ROSUVASTATIN 20 MG TABLET PO SCH (20:13)
[2018-10-03] MEDS: ALBUTEROL/IPRATROPIUM 3 ML NEB RESP TX SCH ×3 (00:43→12:13)
[2018-10-03] MEDS: MAGNESIUM SULF INJ 2 GM in SODIUM CHLORIDE 0.9% 1,000 ML IV SCH (04:41)
[2018-10-03 06:10] LABS: Basophils % 0.6 % (0.0-0.8); Eosinophils # 0.2 10*3/uL (0.0-0.87); Eosinophils % 3.5 % (0.00-10.9); Hematocrit 29.2 VOL% (42.0-52.0); Hemoglobin 8.9 GM/DL (14.0-18.0); Immature Granulocytes % 0.8 %; Immature Granulocytes Absolute 0.04 #; Lymphocytes # 1.2 10*3/uL (1.4-4.0); Lymphocytes % 25.8 % (21.2-54.2); Mean Corpuscular HGB Conc 30.5 GM/DL (32-36); Mean Corpuscular Hemoglobin 27 PG (27-34); Mean Corpuscular Volume 86.9 FL (87-102); Mean Platelet Volume 9.8 FL (9.6-12.0); Monocytes # 0.7 10*3/uL (0.11-0.8); Monocytes % 13.7 % (1.7-12.7); Neutrophils # 2.7 10*3/uL (1.4-7.4); Neutrophils % 55.6 % (38.7-73.9); Platelet Count 155 T/CUMM (130-400); Red Blood Count 3.36 MC/CUMM (3.8-5.5); Red Cell Distribution Width 19.9 % (9.3-17.3); White Blood Count 4.8 T/CUMM (4-12)
[2018-10-03 06:24] LABS: Calcium 7.6 MG/DL (8.5-10.1); Osmolality,Calculated 285.7 MOS/KG (273-304); Potassium 3.3 MMOL/L (3.5-5.1)
[2018-10-03] MEDS: DORNASE ALFA 2.5 MG/2.5 ML VIAL RESP TX SCH (07:09)
[2018-10-03] MEDS: FUROSEMIDE 40 MG TABLET PO SCH (09:54)
[2018-10-03] MEDS: BICALUTAMIDE 50 MG TABLET PO SCH (09:54)
[2018-10-03] MEDS: FERROUS SULFATE 325 MG TABLET PO SCH (09:54)
[2018-10-03] MEDS: LOSARTAN 50 MG TABLET PO SCH (09:54)
[2018-10-03] MEDS: MULTIVITAMIN (CENTRUM) TABLET PO SCH (09:54)
[2018-10-03] MEDS: THIAMINE 100 MG TABLET PO SCH (09:54)
[2018-10-03] MEDS: glipiZIDE 5 MG TABLET PO SCH (09:55)
[2018-10-03] MEDS: INSULIN LISPRO 100 UNIT/ML SUBCUT SCH ×2 (09:55→12:58)
[2018-10-03] MEDS: FOLIC ACID 1 MG TABLET PO SCH (09:55)
[2018-10-03] MEDS: MAGNESIUM CHLORIDE 64 MG TABLET PO SCH (09:55)
[2018-10-03] MEDS: DOCUSATE SODIUM 100 MG CAPSULE PO SCH (09:56)
[2018-10-03] MEDS: FLUTICASONE/SALMETEROL 250-50 DISKUS 14 DOSE INH SCH (09:56)
[2018-10-03] MEDS: POTASSIUM CHLORIDE 20 MEQ TABLET PO SCH (09:57)
[2018-10-03] MEDS: PANTOPRAZOLE 40 MG TABLET PO SCH (09:58)
[2018-10-03] MEDS: DESITIN 4OZ/NYSTATIN 15 GRAM MIXTURE PASTE TOP SCH (09:59)
[2018-10-03 13:09] VITALS: BP 139/63
== END 2018-10-03 14:50 | disposition home health service (06) | DRG 377 ==
LOC: EDUNIT# → N.EDINP 12:48 → N.ED 12:48 → N.2W 15:10 → N.2E 16:19 → N.4E 09-30 10:55
PROVIDERS: ADMIT Family Medicine; ATTEND Family Medicine

== ENCOUNTER 2018-11-30 18:32 | Observation (INO) ==
[2018-11-30] MEDS ORDERED: PANTOPRAZOLE 40 MG VIAL IV STA (18:52)
[2018-11-30] MEDS ORDERED: THIAMINE INJ 100 MG, FOLIC ACID INJ 1 MG, MAGNESIUM SULF INJ 2 GM, MULTIVITAMIN INJ 10 ... IV STA (18:52)
[2018-11-30] MEDS ORDERED: methylPREDNISolone SOD SUC 125 MG/2 ML VIAL IV STA (18:52)
[2018-11-30] MEDS ORDERED: ALBUTEROL/IPRATROPIUM 3 ML NEB RESP TX STA (18:52)
[2018-11-30 19:20] LABS: Basophils # 0.1 10*3/uL (0.0-0.2); Basophils % 0.8 % (0.0-0.8); Eosinophils % 0.3 % (0.00-10.9); Hematocrit 40.3 VOL% (42.0-52.0); Hemoglobin 12.9 GM/DL (14.0-18.0); Immature Granulocytes % 1.3 %; Immature Granulocytes Absolute 0.08 #; Lymphocytes # 1.3 10*3/uL (1.4-4.0); Mean Corpuscular Hemoglobin 30 PG (27-34); Mean Corpuscular Volume 93.9 FL (87-102); Mean Platelet Volume 8.8 FL (9.6-12.0); Monocytes # 0.7 10*3/uL (0.11-0.8); Monocytes % 11.1 % (1.7-12.7); Neutrophils # 4.1 10*3/uL (1.4-7.4); Neutrophils % 65.5 % (38.7-73.9); Platelet Count 136 T/CUMM (130-400); Red Blood Count 4.29 MC/CUMM (3.8-5.5); Red Cell Distribution Width 19.2 % (9.3-17.3); White Blood Count 6.3 T/CUMM (4-12)
[2018-11-30 19:29] LABS: INR 0.9; PT Patient Result 10.3 SECS; Partial Thromboplastin Time 26.3 SECS (0-40)
[2018-11-30 19:35] LABS: Alanine Aminotransferase 38 U/L (16-61); Albumin 3.4 G/DL (3.4-5.0); Alkaline Phosphatase 130 U/L (45-117); Amylase 41 U/L (25-115); Aspartate Amino Transferase 61 U/L (0-37); Bilirubin,Total < 0.39 MG/DL (0.2-1.0); Blood Urea Nitrogen 26 MG/DL (7-18); CKMB % 8.8 %; Calcium 8.4 MG/DL (8.5-10.1); Glucose 95 MG/DL (74-106); Osmolality,Calculated 274.1 MOS/KG (273-304); Potassium 4.8 MMOL/L (3.5-5.1); Sodium 135 MMOL/L (136-145); Total Protein 7.2 G/DL (6.4-8.3); Troponin I < 0.015 NG/ML (0.00-0.045)
[2018-11-30] MEDS ORDERED: AZITHROMYCIN INJ 500 MG in SODIUM CHLORIDE 0.9% 250 ML IV STA (20:00)
[2018-11-30] MEDS ORDERED: cefTRIAXone 1,000 MG in SODIUM CHLORIDE 0.9% 100 ML IV STA (20:00)
[2018-11-30] MEDS ORDERED: ONDANSETRON 4 MG/2 ML VIAL IV PRN (21:05)
[2018-11-30] MEDS ORDERED: ACETAMINOPHEN 325 MG TABLET PO PRN (21:05)
[2018-11-30] MEDS ORDERED: diphenhydrAMINE CAP 25 MG CAPSULE PO PRN (21:05)
[2018-11-30] MEDS ORDERED: NICOTINE 21 MG/24 HR PATCH TRANSDERM PRN (21:05)
[2018-11-30] MEDS ORDERED: LORazepam 2 MG/1 ML VIAL IV PRN (21:05)
[2018-11-30] MEDS ORDERED: ALBUTEROL 2.5 MG/3 ML NEB RESP TX PRN (21:15)
[2018-11-30 21:35] LABS: Alanine Aminotransferase 38 U/L (16-61); Albumin 3.5 G/DL (3.4-5.0); Alkaline Phosphatase 134 U/L (45-117); Aspartate Amino Transferase 62 U/L (0-37); Bilirubin,Indirect 0.2 MG/DL (0.0-1.0); Bilirubin,Total < 0.39 MG/DL (0.2-1.0)
[2018-11-30 21:35] LABS: Apearance,Urine Slightly Hazy (Clear); Bacteria,Urine Occasional /HPF (Few); Bilirubin,Urine Negative (Negative); Blood, Urine Negative (Negative); Glucose,Urine (UA) Negative (Negative); Hyaline Casts,Urine 12 /LPF (0-3); Ketones,Urine 5 mg/dL (Negative); Mucus,Urine Occasional /LPF (Occasional); Nitrite,Urine Negative (Negative); Protein,Urine Negative; RBC,Urine 2 /HPF (0-4); Squamous Epithelial Cell,Urine Occasional /HPF (0-10); Urine Color Yellow (Yellow); Urine Specific Gravity 1.006 (1.001-1.035); Urine Urobilinogen < 2.0 EU/DL (0.2-1.0); WBC,Urine 36 /HPF (0-6)
[2018-11-30 21:36] LABS: Barbiturates Screen,Urine Negative (Negative); Benzodiazepines Screen,Urine Negative (Negative); Cannabinoid Screen,Urine Negative (Negative); Opiate Screen,Urine Negative (Negative); Phencyclidine Screen,Urine Negative (Negative)
[2018-11-30] MEDS ORDERED: NON-FORMULARY MEDICATION (Albuterol Sulfate [Proair Hfa] 2 PUFF) INH PRN (21:43)
[2018-11-30 22:27] LABS: Hepatitis A Ab IgM Quant 0.22 Index; Hepatitis A Ab IgM Result Negative (Negative); Hepatitis B Core IgM Quant 0.07 Index; Hepatitis B Core IgM Result Negative (Negative); Hepatitis B Surface Ag Quant < 0.10 Index; Hepatitis B Surface Ag Result Negative (Negative); Hepatitis C Virus Ab Quant 0.07 Index; Hepatitis C Virus Ab Result Negative (Negative)
[2018-12-01] MEDS: ALBUTEROL/IPRATROPIUM 3 ML NEB RESP TX SCH ×6 (00:12→19:25)
[2018-12-01] MEDS: SODIUM CHLORIDE 0.9% 1,000 ML IV SCH ×3 (04:12→18:01)
[2018-12-01 04:51] LABS: ABG Base Excess -5.2 MMOL/L (-2.5-2.5); ABG HCO3 21.5 MMOL/L (20-26); ABG Oxygen Saturation 92.6 % (95-100); ABG PCO2 46.3 MM HG (35-48); ABG PH 7.285 (7.35-7.45); ABG PO2 74.4 MM HG (80-95); ABG TCO2 22.9 MMOL/L (23-27); Allen Test Positive
[2018-12-01 05:30] LABS: Basophils % 0.3 % (0.0-0.8); Hematocrit 41.3 VOL% (42.0-52.0); Hemoglobin 13.2 GM/DL (14.0-18.0); Immature Granulocytes % 1.8 %; Immature Granulocytes Absolute 0.06 #; Lymphocytes # 0.3 10*3/uL (1.4-4.0); Lymphocytes % 9.7 % (21.2-54.2); Mean Corpuscular Hemoglobin 30 PG (27-34); Mean Corpuscular Volume 94.3 FL (87-102); Mean Platelet Volume 8.9 FL (9.6-12.0); Monocytes % 0.9 % (1.7-12.7); Neutrophils # 2.9 10*3/uL (1.4-7.4); Neutrophils % 87.3 % (38.7-73.9); Platelet Count 129 T/CUMM (130-400); Red Blood Count 4.38 MC/CUMM (3.8-5.5); White Blood Count 3.3 T/CUMM (4-12)
[2018-12-01] MEDS: LEVOTHYROXINE 25 MCG TABLET PO SCH (05:40)
[2018-12-01 05:48] LABS: Calcium 8.5 MG/DL (8.5-10.1); Osmolality,Calculated 277.8 MOS/KG (273-304); Potassium 5.6 MMOL/L (3.5-5.1)
[2018-12-01 05:58] LABS: Hypochromasia 1+; Microcytosis 1+
[2018-12-01 05:59] LABS: Platelet Estimate Adequate
[2018-12-01] MEDS ORDERED: SODIUM POLYSTYRENE SULFATE 15 GM/60 ML BOTTLE PO ONE (08:49)
[2018-12-01] MEDS: POTASSIUM CHLORIDE 20 MEQ TABLET PO SCH ×2 (09:24→22:21)
[2018-12-01] MEDS: FOLIC ACID 1 MG TABLET PO SCH (09:32)
[2018-12-01] MEDS: chlordiazePOXIDE 25 MG CAPSULE PO SCH ×3 (09:32→20:22)
[2018-12-01] MEDS: amLODIPine 2.5 MG TABLET PO SCH (09:32)
[2018-12-01] MEDS: FUROSEMIDE 40 MG TABLET PO SCH (09:32)
[2018-12-01] MEDS: LISINOPRIL 20 MG TABLET PO SCH (09:32)
[2018-12-01] MEDS: PANTOPRAZOLE 40 MG TABLET PO SCH (09:33)
[2018-12-01] MEDS: FERROUS SULFATE 325 MG TABLET PO SCH ×2 (09:33→20:22)
[2018-12-01] MEDS: methylPREDNISolone SOD SUC 40 MG/1 ML VIAL IV SCH ×2 (09:33→20:22)
[2018-12-01] MEDS ORDERED: ZINC OXIDE PASTE 113 GM TUBE TOP PRN (17:00)
[2018-12-01] MEDS: TAMSULOSIN 0.4 MG CAPSULE PO SCH (20:22)
[2018-12-01] MEDS ORDERED: AZITHROMYCIN INJ 500 MG in SODIUM CHLORIDE 0.9% 250 ML IV SCH (21:00)
[2018-12-02] MEDS: ALBUTEROL/IPRATROPIUM 3 ML NEB RESP TX SCH ×6 (03:20→19:04)
[2018-12-02] MEDS: LEVOTHYROXINE 25 MCG TABLET PO SCH (05:46)
[2018-12-02 05:49] LABS: Folate 11.6 NG/ML (5.4-24.0)
[2018-12-02 07:45] LABS: Hematocrit 37.9 VOL% (42.0-52.0); Hemoglobin 12.2 GM/DL (14.0-18.0); Immature Granulocytes % 0.6 %; Immature Granulocytes Absolute 0.03 #; Lymphocytes # 0.7 10*3/uL (1.4-4.0); Lymphocytes % 13.3 % (21.2-54.2); Mean Corpuscular HGB Conc 32.2 GM/DL (32-36); Mean Corpuscular Hemoglobin 30 PG (27-34); Mean Corpuscular Volume 92.7 FL (87-102); Mean Platelet Volume 9.2 FL (9.6-12.0); Monocytes # 0.9 10*3/uL (0.11-0.8); Monocytes % 17.9 % (1.7-12.7); Neutrophils # 3.4 10*3/uL (1.4-7.4); Neutrophils % 68.2 % (38.7-73.9); Platelet Count 115 T/CUMM (130-400); Red Blood Count 4.09 MC/CUMM (3.8-5.5); Red Cell Distribution Width 19.3 % (9.3-17.3)
[2018-12-02 07:57] LABS: Albumin 3.1 G/DL (3.4-5.0); Bilirubin,Total 0.4 MG/DL (0.2-1.0); Calcium 8.7 MG/DL (8.5-10.1); Osmolality,Calculated 277.8 MOS/KG (273-304); Potassium 4.3 MMOL/L (3.5-5.1); Total Protein 6.9 G/DL (6.4-8.3)
[2018-12-02 08:06] LABS: Band Neutrophils 1 % (0-10); Hypochromasia 1+; Lymphocytes 14 % (20-55); Platelet Estimate Decreased; Segmented Neutrophils 69 % (50-85); Total Cells Counted 100
[2018-12-02 08:07] LABS: Microcytosis 1+
[2018-12-02] MEDS: PANTOPRAZOLE 40 MG TABLET PO SCH (09:51)
[2018-12-02] MEDS: FUROSEMIDE 40 MG TABLET PO SCH (09:51)
[2018-12-02] MEDS: chlordiazePOXIDE 25 MG CAPSULE PO SCH ×3 (09:51→20:11)
[2018-12-02] MEDS: POTASSIUM CHLORIDE 20 MEQ TABLET PO SCH ×2 (09:51→20:12)
[2018-12-02] MEDS: amLODIPine 2.5 MG TABLET PO SCH (09:51)
[2018-12-02] MEDS: LISINOPRIL 20 MG TABLET PO SCH (09:52)
[2018-12-02] MEDS: THIAMINE 100 MG TABLET PO SCH (09:52)
[2018-12-02] MEDS: FOLIC ACID 1 MG TABLET PO SCH (09:52)
[2018-12-02] MEDS: FERROUS SULFATE 325 MG TABLET PO SCH ×2 (09:52→20:11)
[2018-12-02] MEDS: methylPREDNISolone SOD SUC 40 MG/1 ML VIAL IV SCH ×2 (09:56→20:10)
[2018-12-02] MEDS: cefTRIAXone 1,000 MG in SYRINGE 1 EACH IV SCH (13:09)
[2018-12-02] MEDS: LEVOFLOXACIN INJ 500 MG in PREMIX 1 EACH IV SCH (13:13)
[2018-12-02] MEDS: TAMSULOSIN 0.4 MG CAPSULE PO SCH (20:12)
[2018-12-03] MEDS: ALBUTEROL/IPRATROPIUM 3 ML NEB RESP TX SCH ×5 (01:27→14:40)
[2018-12-03 04:43] LABS: Basophils % 0.2 % (0.0-0.8); Eosinophils % 0.2 % (0.00-10.9); Hematocrit 41.7 VOL% (42.0-52.0); Hemoglobin 13.2 GM/DL (14.0-18.0); Immature Granulocytes % 0.7 %; Immature Granulocytes Absolute 0.04 #; Lymphocytes # 1.1 10*3/uL (1.4-4.0); Lymphocytes % 18.7 % (21.2-54.2); Mean Corpuscular HGB Conc 31.7 GM/DL (32-36); Mean Corpuscular Hemoglobin 30 PG (27-34); Mean Corpuscular Volume 94.1 FL (87-102); Mean Platelet Volume 9.1 FL (9.6-12.0); Monocytes # 0.8 10*3/uL (0.11-0.8); Monocytes % 13.8 % (1.7-12.7); Neutrophils # 3.8 10*3/uL (1.4-7.4); Neutrophils % 66.4 % (38.7-73.9); Platelet Count 111 T/CUMM (130-400); Red Blood Count 4.43 MC/CUMM (3.8-5.5); Red Cell Distribution Width 19.4 % (9.3-17.3); White Blood Count 5.7 T/CUMM (4-12)
[2018-12-03] MEDS: LEVOTHYROXINE 25 MCG TABLET PO SCH (04:59)
[2018-12-03 05:07] LABS: Hypochromasia 1+; Microcytosis 1+; Platelet Estimate Decreased
[2018-12-03 07:34] LABS: Calcium 9.2 MG/DL (8.5-10.1); Osmolality,Calculated 280.4 MOS/KG (273-304); Potassium 4.1 MMOL/L (3.5-5.1)
[2018-12-03] MEDS ORDERED: MAGNESIUM SULF RIDER 2 GM in PREMIX 1 EACH IV ONE (08:00)
[2018-12-03] MEDS: cefTRIAXone 1,000 MG in SYRINGE 1 EACH IV SCH ×2 (08:55→09:10)
[2018-12-03] MEDS ORDERED: LIDOCAINE 2% 5 ML VIAL ONE (09:00)
[2018-12-03] MEDS ORDERED: PROPOFOL 200 MG/20 ML VIAL IV ONE (09:00)
[2018-12-03] MEDS: methylPREDNISolone SOD SUC 40 MG/1 ML VIAL IV SCH (10:07)
[2018-12-03] MEDS: THIAMINE 100 MG TABLET PO SCH (15:16)
[2018-12-03] MEDS: chlordiazePOXIDE 25 MG CAPSULE PO SCH ×2 (15:16→15:56)
[2018-12-03] MEDS: amLODIPine 2.5 MG TABLET PO SCH (15:16)
[2018-12-03] MEDS: FERROUS SULFATE 325 MG TABLET PO SCH (15:16)
[2018-12-03] MEDS: FUROSEMIDE 40 MG TABLET PO SCH (15:17)
[2018-12-03] MEDS: POTASSIUM CHLORIDE 20 MEQ TABLET PO SCH (15:17)
[2018-12-03] MEDS: LISINOPRIL 20 MG TABLET PO SCH (15:17)
[2018-12-03] MEDS: FOLIC ACID 1 MG TABLET PO SCH (15:17)
[2018-12-03] MEDS: PANTOPRAZOLE 40 MG TABLET PO SCH (15:18)
[2018-12-03] MEDS: LEVOFLOXACIN INJ 500 MG in PREMIX 1 EACH IV SCH (15:22)
[2018-12-03 16:47] VITALS: BP 130/85
== END 2018-12-03 17:33 | disposition home or self-care (01) ==
LOC: EDUNIT# → EDBD → N.EDINP 18:32 → N.ED 18:32 → SUATTDRO 21:05 → N.4E 21:53
PROVIDERS: ADMIT Internal Medicine; ATTEND Internal Medicine

== ENCOUNTER 2019-02-23 09:17 | Observation (INO) ==
[2019-02-23] MEDS ORDERED: SODIUM CHLORIDE 0.9% 1,000 ML IV STA (10:02)
[2019-02-23] MEDS ORDERED: ALUM/MAG/SIMETH/LIDO VISC 1:1 30 ML BOTTLE PO STA (10:02)
[2019-02-23] MEDS ORDERED: ASPIRIN 325 MG TABLET PO STA (10:02)
[2019-02-23] MEDS ORDERED: ONDANSETRON 4 MG/2 ML VIAL IV PRN ×2 (10:02→13:47)
[2019-02-23] MEDS ORDERED: LORazepam 2 MG/1 ML VIAL IV STA (10:24)
[2019-02-23 10:25] LABS: Basophils % 0.6 % (0.0-0.8); Eosinophils % 0.5 % (0.00-10.9); Hematocrit 35.4 VOL% (42.0-52.0); Hemoglobin 12.1 GM/DL (14.0-18.0); Immature Granulocytes % 2.8 %; Immature Granulocytes Absolute 0.17 #; Lymphocytes # 1.3 10*3/uL (1.4-4.0); Lymphocytes % 20.6 % (21.2-54.2); Mean Corpuscular HGB Conc 34.2 GM/DL (32-36); Mean Platelet Volume 8.6 FL (9.6-12.0); Monocytes % 11.8 % (1.7-12.7); Neutrophils % 63.7 % (38.7-73.9); Platelet Count 132 T/CUMM (130-400); Red Blood Count 3.65 MC/CUMM (3.8-5.5); Red Cell Distribution Width 13.3 % (9.3-17.3); White Blood Count 6.2 T/CUMM (4-12)
[2019-02-23 10:34] LABS: INR 0.9; Partial Thromboplastin Time 24.9 SECS (0-40)
[2019-02-23 10:49] LABS: Albumin 3.6 G/DL (3.4-5.0); Bilirubin,Total 0.4 MG/DL (0.2-1.0); Calcium 8.5 MG/DL (8.5-10.1); Osmolality,Calculated 264.7 MOS/KG (273-304); Total Protein 6.5 G/DL (6.4-8.3)
[2019-02-23 10:54] LABS: Apearance,Urine CLEAR (Clear); Bacteria,Urine Occasional /HPF (Few); Bilirubin,Urine Negative (Negative); Blood, Urine Negative (Negative); Glucose,Urine (UA) Negative (Negative); Ketones,Urine Negative (Negative); Mucus,Urine Occasional /LPF (Occasional); Nitrite,Urine Negative (Negative); Protein,Urine Negative; RBC,Urine 2 /HPF (0-4); Squamous Epithelial Cell,Urine Occasional /HPF (0-10); Urine Color Yellow (Yellow); Urine Specific Gravity 1.008 (1.001-1.035); Urine Urobilinogen < 2.0 EU/DL (0.2-1.0)
[2019-02-23 11:04] LABS: Barbiturates Screen,Urine Negative (Negative); Benzodiazepines Screen,Urine Negative (Negative); Cannabinoid Screen,Urine Negative (Negative); Opiate Screen,Urine Negative (Negative); Phencyclidine Screen,Urine Negative (Negative)
[2019-02-23] MEDS ORDERED: ACETAMINOPHEN 325 MG TABLET PO PRN (13:47)
[2019-02-23] MEDS ORDERED: MAGNESIUM SULF RIDER 2 GM in PREMIX 1 EACH IV PRN (13:47)
[2019-02-23] MEDS ORDERED: chlordiazePOXIDE 10 MG CAPSULE PO PRN (13:59)
[2019-02-23] MEDS ORDERED: ENOXAPARIN 40 MG/0.4 ML SYRINGE SUBCUT SCH (14:00)
[2019-02-23 14:27] LABS: Risk Ratio 1.51; VLDL CHOLESTEROL 9.6 MG/DL
[2019-02-23] MEDS ORDERED: ATORVASTATIN 10 MG TABLET PO SCH (21:00)
[2019-02-23] MEDS: chlordiazePOXIDE 10 MG CAPSULE PO SCH (22:08)
[2019-02-24 04:33] LABS: Basophils % 0.3 % (0.0-0.8); Eosinophils % 0.2 % (0.00-10.9); Hematocrit 35.1 VOL% (42.0-52.0); Hemoglobin 11.8 GM/DL (14.0-18.0); Immature Granulocytes % 1.7 %; Immature Granulocytes Absolute 0.11 #; Lymphocytes # 0.8 10*3/uL (1.4-4.0); Lymphocytes % 12.8 % (21.2-54.2); Mean Corpuscular HGB Conc 33.6 GM/DL (32-36); Mean Corpuscular Volume 97.5 FL (87-102); Mean Platelet Volume 8.7 FL (9.6-12.0); Monocytes % 15.6 % (1.7-12.7); Neutrophils % 69.4 % (38.7-73.9); Platelet Count 127 T/CUMM (130-400); Red Cell Distribution Width 13.5 % (9.3-17.3); White Blood Count 6.3 T/CUMM (4-12)
[2019-02-24 05:04] LABS: Osmolality,Calculated 266.4 MOS/KG (273-304)
[2019-02-24 05:13] LABS: Risk Ratio 1.34; Thyroid Stimulating Hormone 1.83 uIU/ml (0.358-3.74)
[2019-02-24 05:16] LABS: Band Neutrophils 1 % (0-10); Lymphocytes 10 % (20-55); Segmented Neutrophils 76 % (50-85); Total Cells Counted 100
[2019-02-24 05:17] LABS: Anisocytosis 1+; Hypochromasia Slight; Microcytosis Slight; Platelet Estimate Decreased
[2019-02-24] MEDS: FOLIC ACID 1 MG TABLET PO SCH (08:48)
[2019-02-24] MEDS: THIAMINE 100 MG TABLET PO SCH (08:48)
[2019-02-24] MEDS: chlordiazePOXIDE 10 MG CAPSULE PO SCH ×3 (08:48→21:59)
[2019-02-24] MEDS ORDERED: GLUCAGON 1 MG VIAL IM PRN (13:43)
[2019-02-24] MEDS ORDERED: DEXTROSE 50% 25 GM/50 ML VIAL IV PRN (13:43)
[2019-02-24] MEDS ORDERED: DEXTROSE 50% 25 GM/50 ML SYRINGE IV PRN (14:00)
[2019-02-24] MEDS: FUROSEMIDE 40 MG TABLET PO SCH (14:04)
[2019-02-24] MEDS: ASPIRIN EC 81 MG TABLET PO SCH (14:04)
[2019-02-24] MEDS: LISINOPRIL 20 MG TABLET PO SCH (14:04)
[2019-02-24] MEDS: INSULIN LISPRO 100 UNIT/ML SUBCUT SCH ×2 (16:05→22:03)
[2019-02-24] MEDS: POTASSIUM CHLORIDE 20 MEQ TABLET PO SCH (22:00)
[2019-02-25 07:54] VITALS: BP 161/88
[2019-02-25] MEDS: INSULIN LISPRO 100 UNIT/ML SUBCUT SCH (08:15)
[2019-02-25] MEDS: FOLIC ACID 1 MG TABLET PO SCH (09:47)
[2019-02-25] MEDS: chlordiazePOXIDE 10 MG CAPSULE PO SCH (09:47)
[2019-02-25] MEDS: ASPIRIN EC 81 MG TABLET PO SCH (09:48)
[2019-02-25] MEDS: FUROSEMIDE 40 MG TABLET PO SCH (09:48)
[2019-02-25] MEDS: THIAMINE 100 MG TABLET PO SCH (09:48)
[2019-02-25] MEDS: LISINOPRIL 20 MG TABLET PO SCH (09:48)
[2019-02-25] MEDS: POTASSIUM CHLORIDE 20 MEQ TABLET PO SCH (09:48)
[2019-02-25] MEDS ORDERED: amLODIPine 2.5 MG TABLET PO SCH (18:00)
== END 2019-02-25 12:00 | disposition home or self-care (01) ==
LOC: EDBD → EDUNIT# → N.ED 09:17 → N.EDINP 09:17 → N.TELES 18:48
PROVIDERS: ADMIT Hospitalist; ATTEND Hospitalist

== ENCOUNTER 2019-03-04 12:21 | Inpatient (IN) ==
[2019-03-04] MEDS ORDERED: GLUCAGON 1 MG VIAL IM PRN (13:18)
[2019-03-04] MEDS ORDERED: DEXTROSE 50% 25 GM/50 ML VIAL IV PRN (13:18)
[2019-03-04] MEDS ORDERED: ACETAMINOPHEN 500 MG TABLET PO PRN (14:25)
[2019-03-04] MEDS ORDERED: LORazepam 2 MG/1 ML VIAL IV PRN (14:33)
[2019-03-04] MEDS ORDERED: THIAMINE INJ 100 MG, FOLIC ACID INJ 1 MG, MULTIVITAMIN INJ 10 ML in SODIUM CHLORIDE 0.9... IV ONE (14:33)
[2019-03-04] MEDS ORDERED: DICYCLOMINE 10 MG CAPSULE PO PRN (14:33)
[2019-03-04] MEDS: chlordiazePOXIDE 25 MG CAPSULE PO SCH ×2 (15:09→20:59)
[2019-03-04] MEDS: HydrOXYzine PAMOATE 25 MG CAPSULE PO PRN (15:12)
[2019-03-04 15:14] LABS: Basophils # 0.1 10*3/uL (0.0-0.2); Basophils % 1.3 % (0.0-0.8); Eosinophils # 0.2 10*3/uL (0.0-0.87); Eosinophils % 3.1 % (0.00-10.9); Hematocrit 35.5 VOL% (42.0-52.0); Hemoglobin 11.9 GM/DL (14.0-18.0); Immature Granulocytes % 3.7 %; Immature Granulocytes Absolute 0.25 #; Lymphocytes # 1.8 10*3/uL (1.4-4.0); Lymphocytes % 26.7 % (21.2-54.2); Mean Corpuscular HGB Conc 33.5 GM/DL (32-36); Mean Corpuscular Volume 98.1 FL (87-102); Mean Platelet Volume 8.9 FL (9.6-12.0); Monocytes % 14.5 % (1.7-12.7); Neutrophils % 50.7 % (38.7-73.9); Platelet Count 174 T/CUMM (130-400); Red Blood Count 3.62 MC/CUMM (3.8-5.5); Red Cell Distribution Width 13.9 % (9.3-17.3); White Blood Count 6.7 T/CUMM (4-12)
[2019-03-04 15:36] LABS: Albumin 3.4 G/DL (3.4-5.0); Bilirubin,Total 0.5 MG/DL (0.2-1.0); Calcium 8.6 MG/DL (8.5-10.1); Osmolality,Calculated 281.4 MOS/KG (273-304); Total Protein 6.8 G/DL (6.4-8.3)
[2019-03-04] MEDS: NICOTINE 21 MG/24 HR PATCH TRANSDERM SCH (16:50)
[2019-03-04 20:20] LABS: Apearance,Urine CLEAR (Clear); Bilirubin,Urine Negative (Negative); Blood, Urine Negative (Negative); Glucose,Urine (UA) Negative (Negative); Ketones,Urine Negative (Negative); Mucus,Urine Occasional /LPF (Occasional); Nitrite,Urine Negative (Negative); Protein,Urine Negative; RBC,Urine 1 /HPF (0-4); Squamous Epithelial Cell,Urine Occasional /HPF (0-10); Urine Color Yellow (Yellow); Urine Specific Gravity 1.014 (1.001-1.035); Urine Urobilinogen < 2.0 EU/DL (0.2-1.0); WBC,Urine 1 /HPF (0-6)
[2019-03-04] MEDS: ALBUTEROL/IPRATROPIUM 3 ML NEB RESP TX SCH (20:26)
[2019-03-04] MEDS: TAMSULOSIN 0.4 MG CAPSULE PO SCH (20:59)
[2019-03-04 21:01] LABS: Barbiturates Screen,Urine Negative (Negative); Benzodiazepines Screen,Urine Positive (Negative); Cannabinoid Screen,Urine Negative (Negative); Opiate Screen,Urine Negative (Negative); Phencyclidine Screen,Urine Negative (Negative)
[2019-03-05] MEDS: ALBUTEROL/IPRATROPIUM 3 ML NEB RESP TX SCH ×4 (01:00→19:24)
[2019-03-05] MEDS: chlordiazePOXIDE 25 MG CAPSULE PO SCH ×4 (03:42→22:11)
[2019-03-05 08:11] LABS: Calcium 8.8 MG/DL (8.5-10.1); Osmolality,Calculated 281.3 MOS/KG (273-304)
[2019-03-05] MEDS: LEVOTHYROXINE 25 MCG TABLET PO SCH (08:43)
[2019-03-05] MEDS: LISINOPRIL 20 MG TABLET PO SCH (08:43)
[2019-03-05] MEDS: MULTIVITAMIN (CENTRUM) TABLET PO SCH (08:43)
[2019-03-05] MEDS: FUROSEMIDE 40 MG TABLET PO SCH (08:43)
[2019-03-05] MEDS: ASPIRIN EC 81 MG TABLET PO SCH (08:43)
[2019-03-05] MEDS: FOLIC ACID 1 MG TABLET PO SCH (08:43)
[2019-03-05] MEDS: NICOTINE 21 MG/24 HR PATCH TRANSDERM SCH (08:48)
[2019-03-05] MEDS: TAMSULOSIN 0.4 MG CAPSULE PO SCH (21:00)
[2019-03-06] MEDS: ALBUTEROL/IPRATROPIUM 3 ML NEB RESP TX SCH ×4 (04:19→20:00)
[2019-03-06] MEDS: LEVOTHYROXINE 25 MCG TABLET PO SCH (06:24)
[2019-03-06] MEDS: chlordiazePOXIDE 25 MG CAPSULE PO SCH ×3 (06:24→23:26)
[2019-03-06] MEDS: FUROSEMIDE 40 MG TABLET PO SCH (08:21)
[2019-03-06] MEDS: ASPIRIN EC 81 MG TABLET PO SCH (08:21)
[2019-03-06] MEDS: LISINOPRIL 20 MG TABLET PO SCH (08:21)
[2019-03-06] MEDS: FOLIC ACID 1 MG TABLET PO SCH (08:21)
[2019-03-06] MEDS: MULTIVITAMIN (CENTRUM) TABLET PO SCH (08:21)
[2019-03-06] MEDS: NICOTINE 21 MG/24 HR PATCH TRANSDERM SCH (08:22)
[2019-03-06] MEDS ORDERED: ENOXAPARIN 40 MG/0.4 ML SYRINGE SUBCUT SCH (13:30)
[2019-03-06] MEDS: TAMSULOSIN 0.4 MG CAPSULE PO SCH (21:14)
[2019-03-07] MEDS: METHOCARBAMOL 750 MG TABLET PO PRN ×2 (00:44→08:45)
[2019-03-07] MEDS: ALBUTEROL/IPRATROPIUM 3 ML NEB RESP TX SCH ×2 (01:45→07:19)
[2019-03-07] MEDS: HydrOXYzine PAMOATE 25 MG CAPSULE PO PRN (03:03)
[2019-03-07] MEDS: LEVOTHYROXINE 25 MCG TABLET PO SCH (06:23)
[2019-03-07] MEDS: chlordiazePOXIDE 25 MG CAPSULE PO SCH (06:23)
[2019-03-07 08:01] VITALS: BP 111/71
[2019-03-07] MEDS: FUROSEMIDE 40 MG TABLET PO SCH (08:45)
[2019-03-07] MEDS: MULTIVITAMIN (CENTRUM) TABLET PO SCH (08:45)
[2019-03-07] MEDS: FOLIC ACID 1 MG TABLET PO SCH (08:45)
[2019-03-07] MEDS: LISINOPRIL 20 MG TABLET PO SCH (08:45)
[2019-03-07] MEDS: ASPIRIN EC 81 MG TABLET PO SCH (08:45)
[2019-03-07] MEDS: NICOTINE 21 MG/24 HR PATCH TRANSDERM SCH (08:48)
== END 2019-03-07 10:30 | disposition home or self-care (01) | DRG 897 ==
LOC: SUATTDRO 12:51 → N.4E 12:51
PROVIDERS: ADMIT Internal Medicine

== ENCOUNTER 2019-07-15 21:03 | Observation (INO) ==
[2019-07-15 21:36] LABS: Basophils # 0.1 10*3/uL (0.0-0.2); Eosinophils # 0.1 10*3/uL (0.0-0.87); Eosinophils % 0.5 % (0.00-10.9); Hematocrit 35.8 VOL% (42.0-52.0); Hemoglobin 12.3 GM/DL (14.0-18.0); Immature Granulocytes % 5.4 %; Lymphocytes # 1.2 10*3/uL (1.4-4.0); Lymphocytes % 13.3 % (21.2-54.2); Mean Corpuscular HGB Conc 34.4 GM/DL (32-36); Monocytes % 17.7 % (1.7-12.7); Neutrophils % 62.1 % (38.7-73.9); Platelet Count 159 T/CUMM (130-400); Red Blood Count 3.73 MC/CUMM (3.8-5.5); Red Cell Distribution Width 14.2 % (9.3-17.3); White Blood Count 9.3 T/CUMM (4-12)
[2019-07-15 21:37] LABS: PT Patient Result 10.9 SECS (9.6-12.2)
[2019-07-15 21:48] LABS: Albumin 2.3 G/DL (3.4-5.0); Bilirubin,Total 0.6 MG/DL (0.2-1.0); Calcium 8.1 MG/DL (8.5-10.1); Osmolality,Calculated 270.2 MOS/KG (273-304); Total Protein 5.6 G/DL (6.4-8.3)
[2019-07-15] MEDS ORDERED: THIAMINE INJ 100 MG, FOLIC ACID INJ 1 MG, MAGNESIUM SULF INJ 2 GM, MULTIVITAMIN INJ 10 ... IV ONE (21:58)
[2019-07-15 22:22] LABS: Apearance,Urine Slightly Hazy (Clear); Bilirubin,Urine Negative (Negative); Blood, Urine Negative (Negative); Glucose,Urine (UA) Negative (Negative); Hyaline Casts,Urine 20 /LPF (0-3); Ketones,Urine Negative (Negative); Mucus,Urine Occasional /LPF (Occasional); Nitrite,Urine Negative (Negative); Protein,Urine Negative; RBC,Urine 2 /HPF (0-4); Squamous Epithelial Cell,Urine Occasional /HPF (0-10); Urine Color Amber (Yellow); Urine Specific Gravity 1.013 (1.001-1.035); WBC,Urine 2 /HPF (0-6)
[2019-07-15 22:25] LABS: Barbiturates Screen,Urine Negative (Negative); Benzodiazepines Screen,Urine Negative (Negative); Cannabinoid Screen,Urine Negative (Negative); Opiate Screen,Urine Positive (Negative); Phencyclidine Screen,Urine Negative (Negative)
[2019-07-15 23:02] LABS: Band Neutrophils 5 % (0-10); Eosinophils 1 % (0-10); Lymphocytes 15 % (20-55); Platelet Estimate Normal; Segmented Neutrophils 69 % (50-85); Total Cells Counted 100
[2019-07-15] MEDS ORDERED: ACETAMINOPHEN 325 MG TABLET PO PRN (23:39)
[2019-07-15] MEDS ORDERED: ONDANSETRON 4 MG/2 ML VIAL IV PRN (23:39)
[2019-07-15] MEDS ORDERED: PROMETHAZINE 25 MG/1 ML VIAL IM PRN (23:39)
[2019-07-15] MEDS ORDERED: LORazepam 2 MG/1 ML VIAL IV PRN (23:39)
[2019-07-15] MEDS ORDERED: NICOTINE 21 MG/24 HR PATCH TRANSDERM PRN (23:39)
[2019-07-15] MEDS ORDERED: diphenhydrAMINE CAP 25 MG CAPSULE PO PRN (23:39)
[2019-07-15] MEDS ORDERED: BISACODYL 5 MG TABLET PO PRN (23:39)
[2019-07-16 00:11] LABS: Risk Ratio 1.89; Thyroid Stimulating Hormone 5.31 uIU/ml (0.358-3.74); VLDL CHOLESTEROL 34.2 MG/DL
[2019-07-16 06:40] LABS: Albumin 2.2 G/DL (3.4-5.0); Bilirubin,Total 0.6 MG/DL (0.2-1.0); Calcium 8.5 MG/DL (8.5-10.1); Total Protein 5.8 G/DL (6.4-8.3)
[2019-07-16] MEDS: SODIUM CHLORIDE 0.9% 1,000 ML IV SCH ×2 (07:44→16:24)
[2019-07-16] MEDS: PANTOPRAZOLE 40 MG TABLET PO SCH ×2 (08:16→08:19)
[2019-07-16] MEDS ORDERED: predniSONE 10 MG TABLET PO SCH (09:00)
[2019-07-16] MEDS ORDERED: AZITHROMYCIN 250 MG TABLET PO SCH (09:00)
[2019-07-16] MEDS ORDERED: MULTIVITAMIN (CENTRUM) TABLET PO SCH (09:00)
[2019-07-16] MEDS: ALBUTEROL/IPRATROPIUM 3 ML NEB RESP TX SCH ×2 (09:52→11:57)
[2019-07-16] MEDS ORDERED: POTASSIUM CHLORIDE 20 MEQ TABLET PO PRN (11:20)
[2019-07-16] MEDS ORDERED: ASPIRIN EC 81 MG TABLET PO SCH (11:24)
[2019-07-16] MEDS ORDERED: METOPROLOL SUCCINATE XL 25 MG TABLET PO SCH (11:25)
[2019-07-16] MEDS ORDERED: FUROSEMIDE 40 MG TABLET PO SCH (11:30)
[2019-07-16] MEDS ORDERED: LISINOPRIL 20 MG TABLET PO SCH (11:30)
[2019-07-16] MEDS ORDERED: LEVOTHYROXINE 25 MCG TABLET PO SCH (11:30)
[2019-07-16 12:22] VITALS: BP 166/86
[2019-07-16] MEDS ORDERED: CLOTRIMAZOLE 1% CREAM 15 GM TUBE TOP SCH (13:30)
[2019-07-16] MEDS ORDERED: TERBINAFINE 250 MG TABLET PO SCH (13:30)
[2019-07-16] MEDS ORDERED: carvediloL 12.5 MG TABLET PO SCH (13:30)
[2019-07-16] MEDS ORDERED: BETHANECHOL 25 MG TABLET PO ONE (14:08)
[2019-07-16] MEDS ORDERED: DOXAZOSIN 1 MG TABLET PO ONE (14:15)
[2019-07-16] MEDS ORDERED: SKIN HEALING OINT (AQUAPHOR) 50 GM TUBE TOP SCH (15:00)
[2019-07-16] MEDS ORDERED: BETHANECHOL 25 MG TABLET PO SCH (15:00)
[2019-07-16] MEDS ORDERED: TAMSULOSIN 0.4 MG CAPSULE PO SCH ×2 (21:00)
[2019-07-17] MEDS ORDERED: POTASSIUM CHLORIDE 20 MEQ TABLET PO SCH (09:00)
== END 2019-07-16 16:23 | disposition home or self-care (01) ==
LOC: EDBD → EDUNIT# → N.ED 21:03 → N.EDINP 21:03 → N.TELES 07-16 01:35
PROVIDERS: ADMIT Hospitalist; ATTEND Hospitalist

== ENCOUNTER 2019-07-16 22:02 | Observation (INO) ==
[2019-07-16] MEDS ORDERED: SODIUM CHLORIDE 0.9% 1,000 ML IV STA (22:27)
[2019-07-16 22:38] LABS: Basophils # 0.1 10*3/uL (0.0-0.2); Basophils % 0.6 % (0.0-0.8); Eosinophils % 0.5 % (0.00-10.9); Hematocrit 32.2 VOL% (42.0-52.0); Immature Granulocytes % 4.3 %; Immature Granulocytes Absolute 0.33 #; Lymphocytes # 0.9 10*3/uL (1.4-4.0); Lymphocytes % 11.6 % (21.2-54.2); Mean Corpuscular HGB Conc 34.2 GM/DL (32-36); Mean Corpuscular Volume 97.3 FL (87-102); Mean Platelet Volume 9.7 FL (9.6-12.0); Monocytes % 19.8 % (1.7-12.7); Neutrophils % 63.2 % (38.7-73.9); Platelet Count 134 T/CUMM (130-400); Red Blood Count 3.31 MC/CUMM (3.8-5.5); Red Cell Distribution Width 14.3 % (9.3-17.3); White Blood Count 7.8 T/CUMM (4-12)
[2019-07-16 22:47] LABS: PT Patient Result 11.1 SECS (9.6-12.2)
[2019-07-16 22:51] LABS: Allen Test Positive
[2019-07-16 22:52] LABS: ABG Base Excess 2.2 MMOL/L (-2.5-2.5); ABG HCO3 27.9 MMOL/L (20-26); ABG Oxygen Saturation 87.3 % (95-100); ABG PCO2 48.2 MM HG (35-48); ABG PH 7.381 (7.35-7.45); ABG PO2 59.6 MM HG (80-95); ABG TCO2 29.4 MMOL/L (23-27)
[2019-07-16 22:58] LABS: Albumin 2.1 G/DL (3.4-5.0); Bilirubin,Total 0.5 MG/DL (0.2-1.0); Calcium 7.7 MG/DL (8.5-10.1); Osmolality,Calculated 276.7 MOS/KG (273-304); Total Protein 5.5 G/DL (6.4-8.3)
[2019-07-16 22:59] LABS: Hypochromasia Slight; Lymphocytes 16 % (20-55); Platelet Estimate Normal; Segmented Neutrophils 73 % (50-85); Total Cells Counted 100
[2019-07-16] MEDS ORDERED: POTASSIUM CHLORIDE 20 MEQ/15 ML UDCUP PO ONE (23:08)
[2019-07-16] MEDS ORDERED: THIAMINE INJ 100 MG, FOLIC ACID INJ 1 MG, MAGNESIUM SULF INJ 2 GM, MULTIVITAMIN INJ 10 ... IV ONE (23:13)
[2019-07-17] MEDS ORDERED: POTASSIUM CHLORIDE 20 MEQ TABLET PO PRN (01:43)
[2019-07-17] MEDS ORDERED: GLUCAGON 1 MG VIAL IM PRN (01:43)
[2019-07-17] MEDS ORDERED: NICOTINE 21 MG/24 HR PATCH TRANSDERM PRN (01:43)
[2019-07-17] MEDS ORDERED: DEXTROSE 50% 25 GM/50 ML VIAL IV PRN (01:43)
[2019-07-17] MEDS ORDERED: ONDANSETRON 4 MG/2 ML VIAL IV PRN (01:43)
[2019-07-17] MEDS ORDERED: DIAZEPAM 10 MG/2 ML SYRINGE IV PRN (01:43)
[2019-07-17] MEDS ORDERED: MAGNESIUM SULF RIDER 4 GM in PREMIX 1 EACH IV PRN (01:43)
[2019-07-17] MEDS ORDERED: MAGNESIUM SULF RIDER 2 GM in PREMIX 1 EACH IV PRN (01:43)
[2019-07-17] MEDS: SODIUM CHLORIDE 0.9% 1,000 ML IV SCH ×2 (03:36→10:53)
[2019-07-17] MEDS ORDERED: LEVOTHYROXINE 25 MCG TABLET PO SCH (06:30)
[2019-07-17] MEDS: INSULIN REGULAR 100 UNIT/ML SUBCUT SCH ×2 (07:44→11:30)
[2019-07-17 08:39] LABS: Bilirubin,Total 0.7 MG/DL (0.2-1.0); Calcium 7.2 MG/DL (8.5-10.1); Osmolality,Calculated 272.8 MOS/KG (273-304); Total Protein 5.4 G/DL (6.4-8.3)
[2019-07-17] MEDS ORDERED: FUROSEMIDE 40 MG TABLET PO SCH (09:00)
[2019-07-17] MEDS ORDERED: MULTIVITAMIN (CENTRUM) TABLET PO SCH (09:00)
[2019-07-17] MEDS ORDERED: ASPIRIN EC 81 MG TABLET PO SCH (09:00)
[2019-07-17] MEDS ORDERED: LISINOPRIL 20 MG TABLET PO SCH (09:00)
[2019-07-17] MEDS ORDERED: carvediloL 6.25 MG TABLET PO SCH (11:00)
[2019-07-17 11:35] VITALS: BP 170/65
== END 2019-07-17 13:39 | disposition home or self-care (01) ==
LOC: EDUNIT# → EDBD → N.ED 22:02 → N.EDINP 22:02 → N.5E 07-17 02:19
PROVIDERS: ADMIT Hospitalist; ATTEND Hospitalist